=== PATIENT | male | born 1945 | race Caucasian/White ===

== ENCOUNTER 2017-04-11 15:29 | Observation (INO) | payer OTHER ==
[~2017-04-11] VITALS: Ht 177.8 cm; Wt 79.6 kg
[2017-04-11] VITALS (8 sets, daily range): BP systolic 134–188; BP diastolic 77–92; PULSE 54–72; RESP 16–20; TEMP 98.2–98.5; O2SAT 97–100
--- NOTE | 2017-04-11 15:42 | PD ---
Physical Exam Date Seen by Provider: Apr 11, 2017 Time Seen by Provider: 15:37 Narrative 72-year-old down from [place] reports the emergency department with history of intermittent angina and stents, last being 2003. Patient reports increased incidents of what he describes as angina with exertion over the past week. Patient also feels that he may have a muscle strain left upper back which could be giving him similar symptoms. Patient felt he had angina this morning on flat ground which is unusual which did not seem to go away as it normally does. He has nitroglycerin but did not take it, he only took his 2 baby aspirin this morning. Patient is taking a pain of 3-4 out of 10 currently. He is not short of breath. Data Data Last Documented VS Vital Signs Date Time Temp Pulse Resp B/P (MAP) Pulse Ox O2 Delivery O2 Flow Rate FiO2 04/11/17 15:31 98.5 72 20 170/92 (118) 98 Room Air [facility] Medical Record Reviewed: Yes Supervised Visit with ISAIAH: Yes Condition: Stable Antoine Fuentes Apr 11, 2017 15:42
[2017-04-11] MEDS ORDERED: ASPIRIN 81 MG CHEW TAB PO ONE (15:45)
[2017-04-11 16:22] LABS: AUTOMATED NEUTROPHIL # 5.1 TH/MM3 (1.8-7.7); BASOPHIL % 0.4 % (0.0-2.0); EOSINOPHIL % 0.3 % (0.0-4.0); HEMATOCRIT 42.5 % (39.0-51.0); HEMO FLAGS DIFF FINAL; LYMPH % 20.7 % (9.0-44.0); LYMPHOCYTE # 1.5 TH/MM3 (1.0-4.8); MEAN CELL VOLUME 89.4 FL (80.0-100.0); MEAN CORPUSCULAR HEMOGLOBIN 29.9 PG (27.0-34.0); MEAN CORPUSCULAR HGB CONC 33.5 % (32.0-36.0); MONO % 7.5 % (0.0-8.0); NEUT % 71.1 % (16.0-70.0); PLATELET COUNT 167 TH/MM3 (150-450); RED BLOOD COUNT 4.76 MIL/MM3 (4.50-5.90); RED CELL DISTRIBUTION WIDTH 13.1 % (11.6-17.2); WHITE BLOOD COUNT 7.2 TH/MM3 (4.0-11.0)
[2017-04-11 16:35] LABS: APTT (PATIENT) 24.3 SEC (24.3-30.1); INTERNATIONAL NORMALIZED RATIO 0.9 RATIO; PROTHROMBIN TIME - PATIENT 10.4 SEC (9.8-11.6)
[2017-04-11 16:37] LABS: ANION GAP 5 MEQ/L (5-15); BICARBONATE 29.2 MEQ/L (21.0-32.0); BLOOD UREA NITROGEN 14 MG/DL (7-18); CHLORIDE 107 MEQ/L (98-107); GLOMERULAR FILTRATION RATE 73 ML/MIN (>89); MAGNESIUM 2.2 MG/DL (1.5-2.5); POTASSIUM 3.9 MEQ/L (3.5-5.1); SODIUM (NA) 141 MEQ/L (136-145)
[2017-04-11 16:42] LABS: CREATINE KINASE 77 U/L (39-308)
--- NOTE | 2017-04-11 16:58 | RADRPT ---
EXAM DATE/TIME: 04/11/2017 16:17 [facility] COMPARISON: No previous studies available for comparison. INDICATIONS : Midline chest pain. MEDICAL HISTORY : Chronic chest pain with exercise. SURGICAL HISTORY : Angioplasty. ENCOUNTER: Initial ACUITY: 1 week PAIN SCORE: 5/10 LOCATION: Chest, midline. FINDINGS: PA and lateral views of the chest demonstrate the lungs to be symmetrically aerated without evidence of mass, infiltrate or effusion. The cardiomediastinal contours are unremarkable. Osseous structure s are intact. CONCLUSION: No acute disease. Jaswant De Luna MD on April 11, 2017 at 16:56 Board Certified Radiologist. This report was verified electronically.
[2017-04-11] MEDS ORDERED: IOHEXOL 350 MG/ML 50 ML BTL (for Cath Lab) OTHER ONE (18:04)
[2017-04-11] MEDS ORDERED: IOHEXOL 350 MG/ML 100 ML BTL (for Cath Lab) OTHER ONE (18:04)
[2017-04-11] MEDS ORDERED: NITROGLYCERIN 0.4 MG SL 25 TABS/BTL SL PRN ×2 (18:15→18:45)
[2017-04-11] MEDS ORDERED: ACETAMINOPHEN 500 MG CPLT PO PRN ×2 (18:15→18:45)
[2017-04-11] MEDS ORDERED: SODIUM CHLORIDE 0.9% FLUSH 10 ML FLUSH IV FLUSH PRN (18:15)
--- NOTE | 2017-04-11 18:29 | PD ---
HPI Chief Complaint: Chest Pain Time Seen by Provider: 16:43 Travel History International Travel<30 days: No Contact w/Intl Traveler<30days: No Traveled to known affect area: No History of Present Illness HPI 72-year-old male that presents to the ED for evaluation of chest discomfort that he's had for the past week. Per patient he comes and goes. Per patient she regularly gets angina pain whenever he exerts himself. Per patient this is not unusual for him. The patient usually takes nitroglycerin arrest and he goes away. Per patient he is originally from [facility] and he lives in an area which is very flat so he was she doesn't have to exert himself but he recently went to [place] which is more elevated and he started having more symptoms. He noticed that when he came here to [place] since Thursday he has been developing more of the symptoms and it did not seem to go away even with the nitroglycerin completely. Per patient this seems to becoming more frequent with less exertion as before. Per patient even with the nitroglycerin the symptoms do not go completely away but they didn't last longer and eventually to go away. Per patient she's not had a heart cath or stress testing about 10 years. Per patient the last time he had any heart issues was in 2003 were he had a heart catheter and stenting. He does have a history of hypertension, smokes cigars on occasion and has a family history of heart disease as well as a show a heart history with himself having stents and CABG in the past. He does not have a cartilage in the area but plans to stay here and [facility] for the next 2 months. He takes aspirin daily. He states that he takes cholesterol medication as well. Pain per patient gets to be sharp and 7 out of 10. In addition he also noted that sometimes he develops this pain on his chest that becomes more constant whenever he moves his back and neck, but not all the time. PFSH Past Medical History Cardiac Catheterization: Yes Cardiovascular Problems: Yes High Cholesterol: Yes Chest Pain: Yes Hypertension: Yes Past Surgical History Coronary Stent: Yes Social History Alcohol Use: No Tobacco Use: Yes (cigars on occassion (maybe twice a year per patient)) Substance Use: No Allergies-Medications (Allergen,Severity, Reaction): Coded Allergies: No Known Allergies (Unverified , 04/11/17) Review of Systems Except as stated in HPI: all other systems reviewed are Neg Physical Exam Narrative GENERAL: SKIN: Warm and dry. HEAD: Atraumatic. Normocephalic. EYES: Pupils equal and round. No scleral icterus. No injection or drainage. ENT: No nasal bleeding or discharge. Mucous membranes pink and moist. Tongue is midline. No uvula deviation. NECK: Trachea midline. No JVD. CARDIOVASCULAR: Regular rate and rhythm. No murmurs, S3, S4. RESPIRATORY: No accessory muscle use. Clear to auscultation. Breath sounds equal bilaterally. GASTROINTESTINAL: Abdomen soft, non-tender, nondistended. Hepatic and splenic margins not palpable. MUSCULOSKELETAL: Extremities without clubbing, cyanosis, or edema. No obvious deformities. Full range of motion of the upper and lower extremities bilaterally. 2+ pulses bilaterally. NEUROLOGICAL: Awake and alert. No obvious cranial nerve deficits. Motor grossly within normal limits. Five out of 5 muscle strength in the arms and legs. Normal speech. PSYCHIATRIC: Appropriate mood and affect; insight and judgment normal. Data Data Last Documented VS Vital Signs Date Time Temp Pulse Resp B/P (MAP) Pulse Ox O2 Delivery O2 Flow Rate FiO2 04/11/17 15:31 98.5 72 20 170/92 (118) 98 Room Air Orders Orders Electrocardiogram (04/11/17 15:42) Basic Metabolic Panel (Bmp) (04/11/17 15:42) Ckmb (Isoenzyme) Profile (04/11/17 15:42) Complete Blood Count With Diff (04/11/17 15:42) Magnesium (Mg) (04/11/17 15:42) Prothrombin Time / Inr (Pt) (04/11/17 15:42) Act Partial Throm Time (Ptt) (04/11/17 15:42) Troponin I (04/11/17 15:42) Aspirin Chew (Aspirin Chew) (04/11/17 15:45) Chest, Pa & Lat (04/11/17 15:42) Admit Order (Ed Use Only) (04/11/17 18:01) Labs Laboratory Tests Test 04/11/17 15:50 White Blood Count 7.2 TH/MM3 Red Blood Count 4.76 MIL/MM3 Hemoglobin 14.3 GM/DL Hematocrit 42.5 % Mean Corpuscular Volume 89.4 FL Mean Corpuscular Hemoglobin 29.9 PG Mean Corpuscular Hemoglobin Concent 33.5 % Red Cell Distribution Width 13.1 % Platelet Count 167 TH/MM3 Mean Platelet Volume 8.6 FL Neutrophils (%) (Auto) 71.1 % Lymphocytes (%) (Auto) 20.7 % Monocytes (%) (Auto) 7.5 % Eosinophils (%) (Auto) 0.3 % Basophils (%) (Auto) 0.4 % Neutrophils # (Auto) 5.1 TH/MM3 Lymphocytes # (Auto) 1.5 TH/MM3 Monocytes # (Auto) 0.5 TH/MM3 Eosinophils # (Auto) 0.0 TH/MM3 Basophils # (Auto) 0.0 TH/MM3 CBC Comment DIFF FINAL Differential Comment Prothrombin Time 10.4 SEC Prothromb Time International Ratio 0.9 RATIO Activated Partial Thromboplast Time 24.3 SEC Blood Urea Nitrogen 14 MG/DL Creatinine 1.01 MG/DL Random Glucose 110 MG/DL Calcium Level 8.9 MG/DL Magnesium Level 2.2 MG/DL Sodium Level 141 MEQ/L Potassium Level 3.9 MEQ/L Chloride Level 107 MEQ/L Carbon Dioxide Level 29.2 MEQ/L Anion Gap 5 MEQ/L Estimat Glomerular Filtration Rate 73 ML/MIN Total Creatine Kinase 77 U/L Troponin I LESS THAN 0.02 NG/ML MDM Medical Decision Making Medical Screen Exam Complete: Yes Emergency Medical Condition: Yes Medical Record Reviewed: Yes Interpretation(s) CBC & BMP Diagram 04/11/17 15:50 Calcium Level 8.9, Magnesium Level 2.2 troponin and CKMB negative EKG shows sinus rhythm with no sign of acute ischemia or arrythmia read by me and attending. Last Impressions Chest X-Ray 04/11/17 1542 Signed Impressions: Service Date/Time: Thursday, April 11, 2017 16:17 - CONCLUSION: No acute disease. Jaswant De Luna MD Differential Diagnosis Chest pain versus a typical chest pain versus ACS versus muscle strain versus muscle spasm versus angina Narrative Course 72-year-old male that presents to the ED for evaluation of chest pain. Patient was properly examined and was found to have signs and symptoms concerning for chest discomfort. Unclear etiology at this time. Definite concern for ACS as he does have a significant history of this. He does have risk factors including personal history of ACS, smoking, cholesterol and hypertension. Labs and imaging were done and were essentially unremarkable. No sign of acute STEMI or ACS event. Patient at this time is chest pain-free. Some of the pain is reproducible with touch in the back but not on the chest. I do recommend admission for chest pain center. This was discussed with my attending Dr. Ly who agrees with this. Patient will be admitted to the chest pain center. Patient agrees to this. Diagnosis Primary Impression: Chest pain in adult Admitting Information Admitting Physician Requests: Observation Condition: Stable Michael Estrada Apr 11, 2017 18:29
[2017-04-11] MEDS ORDERED: cloNIDine HCL 0.1 MG TAB PO ONE (18:30)
[2017-04-11] MEDS ORDERED: cloNIDine HCL 0.1 MG TAB PO PRN (18:45)
[2017-04-11] MEDS ORDERED: ONDANSETRON HCL 4 MG/2 ML VIAL IV PUSH PRN (18:45)
[2017-04-11] MEDS ORDERED: RAMI2.5C PO (18:51)
[2017-04-11] MEDS ORDERED: CLOP75TA PO (18:51)
[2017-04-11] MEDS ORDERED: METO50TA PO (18:51)
[2017-04-11] MEDS ORDERED: PRAV80TA2 PO (18:53)
[2017-04-11] MEDS ORDERED: ASPI81CH CHEW (18:54)
[2017-04-11] MEDS ORDERED: FOLI400T PO (18:54)
[2017-04-11] MEDS: SODIUM CHLORIDE 0.9% FLUSH 10 ML FLUSH IV FLUSH SCH (21:00)
[2017-04-11 21:09] LABS: CREATINE KINASE 69 U/L (39-308)
[2017-04-11 22:59] LABS: CREATINE KINASE 64 U/L (39-308)
[2017-04-12] VITALS (9 sets, daily range): BP systolic 121–166; BP diastolic 59–81; PULSE 54–60; RESP 18; TEMP 98–98.5; O2SAT 95–100
[2017-04-12] MEDS: ASPIRIN 325 MG TAB PO SCH (08:17)
[2017-04-12] MEDS: SODIUM CHLORIDE 0.9% FLUSH 10 ML FLUSH IV FLUSH SCH ×2 (08:18→21:00)
[2017-04-12] MEDS: PRAVASTATIN SOD 80 MG TAB PO SCH (08:20)
[2017-04-12] MEDS: CLOPIDOGREL 75 MG TAB PO SCH (08:20)
--- NOTE | 2017-04-12 08:26 | HHI.HP ---
HPI Primary Care Physician [place], [place] Chief Complaint Chest pain History of Present Illness 72-year-old male with history of coronary artery disease including 3 angioplasties and one cardiac stent presents to emergency room for further evaluation of chest pain. Reports history of "normal angina" since 2003 consists of exertional substernal chest tightness which quickly subsides after walking 1/4 mile or within a few minutes into his activity. Endorses normal angina is not predictable, stating some times does not develop angina symptoms at all. Rarely requires nitroglycerin SL. Presents to ER, as directed by his aeronautical engineering teacher in [place], due increasing frequency and intensity of anginal symptoms. This past Thursday (04/03/2017) was visiting his [id number] in [place]. Reports while walking the neighborhood there his angina symptoms began as usual. Initially contributed angina to hilly terrain, however chest tightness did not improve until he resting lasting approximately 15 minutes. Second chest pain episode occurred Thursday, while push mowing his grass. Again, angina symptoms more intense and did not resolve until resting. He was uncertain if pain on Thursday was angina in nature or musculoskeletal from a fall 3 weeks prior, therefore not overly concerned. Became concerned after experiencing chest tightness during his daily walks twice later in the week. No associated symptoms of nausea, vomiting, or diaphoresis. Reports slight shortness of breath during chest pain episodes. No radiation of pain. Duration approximately 15 minutes with each episode. Precipitating factors exertion. Relieving factors rest. Chest discomfort similar to prior angioplasty and stent placed in 2003. No recent stress testing. He spoke with a aeronautical engineering teacher covering for his aeronautical engineering teacher yesterday and was instructed to go to ER. Review of Systems General: No fatigue,weakness, fever, chills, recent illness, or change in appetite. Has been his general state of health. His lifestyle. CV: As stated above. No current chest pain or pressure. No palpitations, intermittent leg pain, or dizziness. RESP: No SOB, cough, recent URI, or sputum production. GI: No nausea, vomiting, or bowel changes. : No dysuria, urgency, or frequency. EXT: No lower leg edema, no paraesthesias MS: Recent fall from ladder 3 weeks ago, ladder collapsed. No LOC, injury, or trauma. Since this time slight midline between shoulder blades substernal tenderness when he moves his neck down. No change in ROM NEURO: No change in memory, difficulty with balance, LOC, motor/sensory deficits PSYCH: No anxiety, depression, or relational stress SKIN: No rashes, no concerning lesions Past Family Social History Allergies: Coded Allergies: No Known Allergies (Unverified , 04/11/17) Past Medical History CAD, x1 cardiac stents, 3 angioplasties, HLD, HTN, Dupuytren contracture Past Surgical History Hernia repair (1995) Reported Medications Active Reported Folic Acid 0.4 Mg Tab 400 Mcg PO DAILY Aspirin 81 Mg Chew 81 Mg CHEW DAILY Pravastatin 80 Mg Tab 80 Mg PO DAILY Clopidogrel (Clopidogrel Bisulfate) 75 Mg Tab 75 Mg PO DAILY Metoprolol Tartrate 50 Mg Tab 50 Mg PO DAILY Ramipril 2.5 Mg Cap 2.5 Mg PO DAILY Active Ordered Medications Current Medications Medications (Trade) Dose Ordered Sig/Guido Route Start Time Stop Time Status Last Admin (NS Flush) 2 ml UNSCH PRN IV FLUSH 04/11/17 18:15 (NS Flush) 2 ml BID IV FLUSH 04/11/17 21:00 04/11/17 21:00 (Nitrostat Sl) 0.4 mg Q5M PRN SL 04/11/17 18:15 (Tylenol) 500 mg Q4H PRN PO 04/11/17 18:45 (Zofran Inj) 4 mg Q6H PRN IV PUSH 04/11/17 18:45 (Nitrostat Sl) 0.4 mg Q5M PRN SL 04/11/17 18:45 (Aspirin) 325 mg DAILY PO 04/12/17 09:00 (Catapres) 0.1 mg Q6H PRN PO 04/11/17 18:45 (Plavix) 75 mg DAILY PO 04/12/17 09:00 (Pravachol) 80 mg DAILY PO 04/12/17 09:00 (Altace) 2.5 mg DAILY PO 04/12/17 09:00 Family History Mother CABG Social History Known CAD, HLD, and HTN. No known diabetes. Lifelong smoker. Rare cigar/yearly. Social alcohol use, reports sometimes zero drinks, other times 1-2 alcohol beverages. . Lives in [place] 6 months out of year other times living in [place]. Active. Walks 2-3 miles 3 times a week. Past Cardiac Testing No recent stress testing. Last stress test 10 years ago. December 2016 echocardiogram-reported to be normal. Echocardiogram completed for new heart murmur identified this year, ordered by his primary MD. 05/01/1993 Cardiac catheterization ([place])-angioplasty (reports angioplasty of anterior descending artery). Discomfort prior to procedure described as "sharp, needle pain" progressed within 6 weeks to exertional chest pain. 03/19/2001 Cardiac catheterization ([place])-angioplasty. Cannot recall discomfort or symptoms prior to this catheterization. 11/02/2003 Cardiac catheterization angioplasty and 1 stent (Stent placed behind prior stent during same procedure). Discomfort prior to procedure described as a dull aching, substernal pressure as though "someone was sitting on my chest." Visiting his son in [place] at the time, once returning home to [place] 4 his aeronautical engineering teacher who then proceeded with cardiac catheterization. Stent card picture illustration reviewed. Unable to determine where angioplasty versus stent were placed. Physical Exam Vital Signs Vital Signs Date Time Temp Pulse Resp B/P (MAP) Pulse Ox O2 Delivery O2 Flow Rate FiO2 04/12/17 03:56 55 04/12/17 03:22 98.0 54 18 135/75 (95) 95 04/11/17 23:24 98.4 54 18 134/77 (96) 100 04/11/17 22:06 54 04/11/17 21:06 04/11/17 20:56 97 21 04/11/17 20:55 98.2 57 18 145/79 (101) 100 04/11/17 18:24 100 21 04/11/17 18:05 58 16 187/92 (123) 04/11/17 16:45 68 16 188/90 (122) 04/11/17 15:31 98.5 72 20 170/92 (118) 98 Room Air Physical Exam GENERAL: Alert WN, WD, NAD, pleasant, male who appears younger than stated age. HEAD: NC, AT EYES: Sclera clear ENT: Mucous membranes pink and moist NECK: Supple, no masses, trachea midline CV: RRR, 2/6 systolic murmur, without rub or gallop, no JVD, S1-S2 no S3-S4. RESP: Clear lungs throughout bilateral, no crackles, wheeze, rhonchi, symmetrical chest rise, nonlabored, able to speak in full sentences ABD: Soft, NT, ND, no masses, positive bowel tones EXT: Pulses +24, no dependent edema MS: Dupuytren contracture of left hand, normal tone 4 extremities, full range of motion NEURO: CN II through CN XII grossly intact, motor strength 5/5 PSYCH: A+O 3, pleasant affect, appropriate speech, appropriate mood and affect , insight and judgment SKIN: Normal turgor, normal texture, no lesions, no rashes, brisk cap refill, even hair distribution Laboratory Laboratory Tests Test 04/11/17 15:50 04/11/17 19:55 04/11/17 21:55 White Blood Count 7.2 Red Blood Count 4.76 Hemoglobin 14.3 Hematocrit 42.5 Mean Corpuscular Volume 89.4 Mean Corpuscular Hemoglobin 29.9 Mean Corpuscular Hemoglobin Concent 33.5 Red Cell Distribution Width 13.1 Platelet Count 167 Mean Platelet Volume 8.6 Neutrophils (%) (Auto) 71.1 Lymphocytes (%) (Auto) 20.7 Monocytes (%) (Auto) 7.5 Eosinophils (%) (Auto) 0.3 Basophils (%) (Auto) 0.4 Neutrophils # (Auto) 5.1 Lymphocytes # (Auto) 1.5 Monocytes # (Auto) 0.5 Eosinophils # (Auto) 0.0 Basophils # (Auto) 0.0 CBC Comment DIFF FINAL Differential Comment Prothrombin Time 10.4 Prothromb Time International Ratio 0.9 Activated Partial Thromboplast Time 24.3 Blood Urea Nitrogen 14 Creatinine 1.01 Random Glucose 110 Calcium Level 8.9 Magnesium Level 2.2 Sodium Level 141 Potassium Level 3.9 Chloride Level 107 Carbon Dioxide Level 29.2 Anion Gap 5 Estimat Glomerular Filtration Rate 73 Total Creatine Kinase 77 69 64 Troponin I LESS THAN 0.02 LESS THAN 0.02 LESS THAN 0.02 Result Diagram: 04/11/17 1550 04/11/17 1550 Imaging Last Impressions Chest X-Ray 04/11/17 1542 Signed Impressions: Service Date/Time: Tuesday, April 11, 2017 16:17 - CONCLUSION: No acute disease. Jaswant De Luna MD Course EKG 1st AVB, NSB Caprini VTE Risk Assessment Caprini VTE Risk Assessment: Mod/High Risk (score >= 2) Caprini Risk Assessment Model Point Value = 1 Point Value = 2 Point Value = 3 Point Value = 5 Age 41-60 Minor surgery BMI > 25 kg/m2 Swollen legs Varicose veins or History of unexplained or recurrent spontaneous Oral contraceptives or hormone replacement Sepsis (< 1 month) Serious lung disease, including pneumonia (< 1 month) Abnormal pulmonary function Acute myocardial infarction Congestive heart failure (< 1 month) History of inflammatory bowel disease Medical patient at bed rest Age 61-74 Arthroscopic surgery Major open surgery (> 45 min) Laparoscopic surgery (> 45 min) Malignancy Confined to bed (> 72 hours) Immobilizing plaster cast Central venous access Age >= 75 History of VTE Family history of VTE Factor V Leiden Prothrombin [id number] Lupus anticoagulant Anticardiolipin antibodies Elevated serum homocysteine Heparin-induced thrombocytopenia Other congenital or acquired thrombophilia Stroke (< 1 month) Elective arthroplasty Hip, pelvis, or leg fracture Acute spinal cord injury (< 1 month) Prophylaxis Regimen Total Risk Factor Score Risk Level Prophylaxis Regimen 0-1 Low Early ambulation 2 Moderate Order ONE of the following: *Sequential Compression Device (SCD) *Heparin 5000 units SQ BID 3-4 Higher Order ONE of the following medications: *Heparin 5000 units SQ TID *Enoxaparin/Lovenox 40 mg SQ daily (WT < 150 kg, CrCl > 30 mL/min) *Enoxaparin/Lovenox 30 mg SQ daily (WT < 150 kg, CrCl > 10-29 mL/min) *Enoxaparin/Lovenox 30 mg SQ BID (WT < 150 kg, CrCl > 30 mL/min) AND/OR *Sequential Compression Device (SCD) 5 or more Highest Order ONE of the following medications: *Heparin 5000 units SQ TID (Preferred with Epidurals) *Enoxaparin/Lovenox 40 mg SQ daily (WT < 150 kg, CrCl > 30 mL/min) *Enoxaparin/Lovenox 30 mg SQ daily (WT < 150 kg, CrCl > 10-29 mL/min) *Enoxaparin/Lovenox 30 mg SQ BID (WT < 150 kg, CrCl > 30 mL/min) AND *Sequential Compression Device (SCD) Assessment and Plan Assessment and Plan #1 Chest pain-admitted to chest pain center. Ruled out with 3 sets of EKGs, cardiac enzymes, and monitored overnight. Will be seen an evaluated by Dr. Mark Ferguson. Discussed in length with Dr. Ferguson proceeding with chemical stress test due to concern patient may not reach target heart rate due to anginal symptoms. Discussed in length with patient recommendation of a chemical stress test. Patient agreeable to plan of care. #2 History of CAD-continue Plavix, pravastatin, and ramipril. Hold metoprolol until after stress testing. 14:20 Dr. Ferguson assessed patient and discussed in length with patient and his regarding cardiac stress testing results. Plan is to admit to hospitalist group with a aeronautical engineering teacher consult. Nitro paste 1 inch Q6H. Nancie Rodríguez Apr 12, 2017 08:26
[2017-04-12] MEDS: RAMIPRIL 2.5 MG CAP PO SCH (09:21)
--- NOTE | 2017-04-12 11:39 | EKG ---
Date Performed: 04/11/2017 Time Performed: 19:54:50 PTAGE: 72 years EKG: SINUS BRADYCARDIA WITH FIRST DEGREE AV BLOCK ABNORMAL ECG PREVIOUS TRACING : 04/11/2017 15.46 Since previous tracing, no significant change noted DOCTOR: Mark Ferguson Interpretating Date/Time 04/12/2017 11:38:26
--- NOTE | 2017-04-12 11:41 | EKG ---
Date Performed: 04/11/2017 Time Performed: 15:46:48 PTAGE: 72 years EKG: Sinus rhythm normal ECG NO PREVIOUS TRACING DOCTOR: Mark Ferguson Interpretating Date/Time 04/12/2017 11:39:38
--- NOTE | 2017-04-12 11:41 | EKG ---
Date Performed: 04/11/2017 Time Performed: 21:47:55 PTAGE: 72 years EKG: SINUS BRADYCARDIA WITH FIRST DEGREE AV BLOCK ABNORMAL ECG PREVIOUS TRACING : 04/11/2017 19.54 Since previous tracing, no significant change noted DOCTOR: Mark Ferguson Interpretating Date/Time 04/12/2017 11:41:16
[2017-04-12] MEDS ORDERED: REGADENOSON INJ 0.4 MG/5 ML SYR ONE (12:08)
--- NOTE | 2017-04-12 13:36 | RADRPT ---
EXAM DATE/TIME: 04/12/2017 11:34 [facility] COMPARISON: No previous studies available for comparison. INDICATIONS : Chest pain. Angina. DOSE: 27.2 mCi Tc99m Myoview at stress. 8.5 mCi Tc99m Myoview at rest. 0.4 mg Lexiscan STRESS SYMPTOMS: Dyspnea and weird feeling. EJECTION FRACTION: 65% MEDICAL HISTORY : Hypertension. Cardiovascular disease Smoker. SURGICAL HISTORY : Angioplasty. Umbilical hernia repair. ENCOUNTER: Initial ACUITY: 2 days PAIN SCALE: 0/10 LOCATION: Substernal chest TECHNIQUE: The patient underwent pharmacologic stress with infusion of prescribed dose. Continuous ECG tracing was monitored during stress. Gated SPECT imaging was performed after stress and conventional SPECT i maging was performed at rest. The examination was performed on a SPECT/CT scanner, both attenuation and non-corrected datasets were reviewed. FINDINGS: DISTRIBUTION: The maximum perfused segment at stress is in the septal wall. PERFUSION STUDY: There is a moderate size reversible defect involving the anterior wall which is moderate in severity. . GATED STUDY: There is intact wall motion and thickening without hypokinetic or dyskinetic segments. CONCLUSION: 1. Moderate size reversible defect involving the anterior wall of concern for ischemia in the left an terior descending artery distribution. 2. Normal wall motion and calculated ejection fraction. RISK CATEGORY: Intermediate (1-3% Annual Mortality Rate) Jaswant De Luna MD on April 12, 2017 at 13:31 Board Certified Radiologist. This report was verified electronically.
[2017-04-12] MEDS: NITROGLYCERIN 2% OINT 1 GM PACKET TOPICAL SCH ×2 (14:50→20:38)
[2017-04-12] MEDS: METOPROLOL TARTRATE 50 MG TAB PO SCH (14:50)
--- NOTE | 2017-04-12 16:11 | MB ---
cc: ALEKS GRANADOS MD DATE OF CONSULTATION: 04/12/2017. REASON FOR CONSULTATION: Unstable angina. HISTORY OF PRESENT ILLNESS: The patient is a very pleasant 72-year-old gentleman with a known history of coronary artery disease status post stents to the left anterior descending, circumflex and right coronary artery last in about 2003. It sounds like the patient has had some degree of stable angina over the last number of years but over the last several weeks his symptoms have become more severe requiring less and less exertion to bring on the chest pain and also some of it lasting longer. He did take some nitroglycerin with resolution of his symptoms. Due to the acceleration of his symptoms, he came to the emergency department, ruled out for myocardial infarction but then had a nuclear stress test which showed moderate anterior ischemia. He is currently asymptomatic and denying any residual chest discomfort, shortness of breath, lightheadedness, dizziness. PAST MEDICAL HISTORY: 1. Coronary artery disease as above. 2. Hypertension. 3. Hyperlipidemia. CURRENT MEDICATIONS: 1. Nitro paste milligrams daily. 2. Aspirin 325 milligrams daily. 3. Plavix 75 milligrams daily. 4. Pravachol 80 milligrams daily. 5. Altace 2.5 milligrams daily. ALLERGIES: NO KNOWN DRUG ALLERGIES. PHYSICAL EXAMINATION: VITAL SIGNS: Afebrile, pulse 58, respiratory rate 18, blood pressure 145/77, satting 100 on room air. GENERAL: A pleasant well-appearing gentleman in no distress. NECK: No jugular venous distention. LUNGS: Clear to auscultation bilaterally. CARDIOVASCULAR: Regular rate and rhythm. No murmurs appreciated. ABDOMEN: Benign. EXTREMITIES: No edema. LABORATORY DATA: Cardiac enzymes negative x3. Sodium 141, potassium 3.9, chloride 107, bicarb 29.2, BUN 14, creatinine 1.01, glucose 110. White count 7.2, hematocrit 42.5, platelets 167,000. EKGS: EKG shows sinus rhythm at 53 with no acute S-T or T-wave changes. IMPRESSION: 1. Unstable angina with abnormal nuclear stress test: The patient has classic symptoms of unstable angina and a nuclear stress test showed moderate anterior ischemia in the territory of his first stent to his left anterior descending. He is asymptomatic now. I will arrange for a cardiac catheterization by my colleague, Dr. Jackson, in the morning. Otherwise, medical therapy will be continued until then. I will add Imdur to his regimen as well. Further recommendations will be based on the clinical course and his cardiac catheterization. Thank you again for the opportunity to participate in this patient's care. MD TYSHAWN Watt/SANDRO /3:36 PM /4:04 PM
--- NOTE | 2017-04-12 17:10 | HHI.PR ---
Subjective Remarks resting comfortably with no distress. has some neck pain. no other complaints. Objective Vitals Vital Signs Date Time Temp Pulse Resp B/P (MAP) Pulse Ox O2 Delivery O2 Flow Rate FiO2 04/12/17 16:49 98.5 56 18 150/74 (99) 96 04/12/17 10:09 145/77 (99) 04/12/17 09:33 58 04/12/17 09:18 98.5 57 18 166/81 (109) 100 04/12/17 03:56 55 04/12/17 03:22 98.0 54 18 135/75 (95) 95 04/11/17 23:24 98.4 54 18 134/77 (96) 100 04/11/17 22:06 54 04/11/17 21:06 04/11/17 20:56 97 21 04/11/17 20:55 98.2 57 18 145/79 (101) 100 04/11/17 18:24 100 21 04/11/17 18:05 58 16 187/92 (123) Result Diagram: 04/11/17 1550 04/11/17 1550 Imaging Last Impressions Myocardial Perfusion Scan Nuc Med 04/12/17 0000 Signed Impressions: Service Date/Time: Wednesday, April 12, 2017 11:34 - CONCLUSION: 1. Moderate size reversible defect involving the anterior wall of concern for ischemia in the left anterior descending artery distribution. 2. Normal wall motion and calculated ejection fraction. RISK CATEGORY: Intermediate (1-3%% Annual Mortality Rate) Jaswant De Luna MD Chest X-Ray 04/11/17 1542 Signed Impressions: Service Date/Time: Tuesday, April 11, 2017 16:17 - CONCLUSION: No acute disease. Jaswant De Luna MD Objective Remarks GENERAL: This is a well-nourished, well-developed patient, in no apparent distress. CARDIOVASCULAR: Regular rate and regular rhythm without murmurs, gallops, or rubs. RESPIRATORY: Clear to auscultation. Breath sounds equal bilaterally. No wheezes , rales, or rhonchi. GASTROINTESTINAL: Abdomen soft, non-tender, nondistended. Normal, active bowel sounds MUSCULOSKELETAL: Extremities without clubbing, cyanosis, or edema. NEURO: Alert & Oriented x4 to person, place, time, situation. Moves all ext x4 Medications and IVs Current Medications Aspirin (Aspirin Chew) 162 mg ONCE ONCE PO Last administered on 04/11/17 17: 12; Start 04/11/17 at 15:45; Stop 04/11/17 at 15:46; Status DC Sodium Chloride (NS Flush) 2 ml UNSCH PRN IV FLUSH FLUSH AFTER USING IV ACCESS ; Start 04/11/17 at 18:15 Sodium Chloride (NS Flush) 2 ml BID IV FLUSH Last administered on 04/12/17 08: 18; Start 04/11/17 at 21:00 Acetaminophen (Tylenol) 500 mg Q4H PRN PO HEADACHE; Start 04/11/17 at 18:15; Status Cancel Nitroglycerin (Nitrostat Sl) 0.4 mg Q5M PRN SL CHEST PAIN; Start 04/11/17 at 18 :15 Clonidine (Catapres) 0.1 mg ONCE ONCE PO Last administered on 04/11/17 18:38 ; Start 04/11/17 at 18:30; Stop 04/11/17 at 18:31; Status DC Acetaminophen (Tylenol) 500 mg Q4H PRN PO HEADACHE; Start 04/11/17 at 18:45 Ondansetron HCl (Zofran Inj) 4 mg Q6H PRN IV PUSH NAUSEA; Start 04/11/17 at 18: 45 Nitroglycerin (Nitrostat Sl) 0.4 mg Q5M PRN SL CHEST PAIN; Start 04/11/17 at 18 :45 Aspirin (Aspirin) 325 mg DAILY PO Last administered on 04/12/17 08:17; Start 04/12/17 at 09:00 Clonidine (Catapres) 0.1 mg Q6H PRN PO SBP>180, DBP>110; Start 04/11/17 at 18: 45 Clopidogrel Bisulfate (Plavix) 75 mg DAILY PO Last administered on 04/12/17 08 :20; Start 04/12/17 at 09:00 Pravastatin Sodium (Pravachol) 80 mg DAILY PO ; Start 04/12/17 at 09:00 Ramipril (Altace) 2.5 mg DAILY PO Last administered on 04/12/17 09:21; Start 04/12/17 at 09:00 Regadenoson (Lexiscan Inj) 0.4 mg STK-MED ONCE .ROUTE Last administered on 04/12 12:08; Start 04/12/17 at 12:08; Stop 04/12/17 at 12:09; Status DC Nitroglycerin (Nitroglycerin 2% Oint) 1 inch Q6H TOPICAL Last administered on 14:50; Start 04/12/17 at 15:00 Metoprolol Tartrate (Lopressor) 50 mg DAILY PO Last administered on 04/12/17 14:50; Start 04/12/17 at 14:30 Isosorbide Mononitrate (Imdur) 30 mg DAILY@07 PO ; Start 04/13/17 at 07:00 A/P Assessment and Plan A/P - unstable angina with ischemia of the anterior wall continue aspirin, plavix, BB, ramipril and statin imdur was added- cardiology consult appreciated and plan for heart cath tomorrow. Cece Shearer MD Apr 12, 2017 17:10
[2017-04-13] VITALS (15 sets, daily range): BP systolic 113–169; BP diastolic 52–82; PULSE 53–97; RESP 18; TEMP 97.9–98.9; O2SAT 91–99
[2017-04-13] MEDS: NITROGLYCERIN 2% OINT 1 GM PACKET TOPICAL SCH ×4 (04:26→20:42)
[2017-04-13] MEDS: ISOSORBIDE MONONITRATE 30 MG TAB PO SCH (07:00)
--- NOTE | 2017-04-13 08:32 | HHI.PR ---
Subjective Remarks resting comfortably with no distress. denies chest pain or sob. no new complaints. awaiting cardiac cath. Objective Vitals Vital Signs Date Time Temp Pulse Resp B/P (MAP) Pulse Ox O2 Delivery O2 Flow Rate FiO2 04/13/17 07:57 21 04/13/17 07:18 97.9 97 18 169/82 (111) 91 04/13/17 06:53 98.7 64 18 117/68 (84) 94 04/13/17 04:04 53 04/13/17 00:48 98.7 54 18 122/67 (85) 97 04/13/17 00:00 53 04/12/17 20:13 98.3 60 18 121/59 (79) 95 04/12/17 20:05 59 04/12/17 18:10 58 04/12/17 16:49 98.5 56 18 150/74 (99) 96 04/12/17 10:09 145/77 (99) 04/12/17 09:33 58 04/12/17 09:18 98.5 57 18 166/81 (109) 100 I/O 04/12/17 04/12/17 04/12/17 04/13/17 04/13/17 04/13/17 07:00 15:00 23:00 07:00 15:00 23:00 Intake Total 240 ml 0 ml Balance 240 ml 0 ml Intake Oral 240 ml 0 ml # Voids 1 1 # Bowel Movements 1 Result Diagram: 04/11/17 1550 04/11/17 1550 Imaging Last Impressions Myocardial Perfusion Scan Nuc Med 04/12/17 0000 Signed Impressions: Service Date/Time: Wednesday, April 12, 2017 11:34 - CONCLUSION: 1. Moderate size reversible defect involving the anterior wall of concern for ischemia in the left anterior descending artery distribution. 2. Normal wall motion and calculated ejection fraction. RISK CATEGORY: Intermediate (1-3%% Annual Mortality Rate) Jaswant De Luna MD Chest X-Ray 04/11/17 1542 Signed Impressions: Service Date/Time: Tuesday, April 11, 2017 16:17 - CONCLUSION: No acute disease. Jaswant De Luna MD Objective Remarks GENERAL: This is a well-nourished, well-developed patient, in no apparent distress. CARDIOVASCULAR: Regular rate and regular rhythm without murmurs, gallops, or rubs. RESPIRATORY: Clear to auscultation. Breath sounds equal bilaterally. No wheezes , rales, or rhonchi. GASTROINTESTINAL: Abdomen soft, non-tender, nondistended. Normal, active bowel sounds MUSCULOSKELETAL: Extremities without clubbing, cyanosis, or edema. NEURO: Alert & Oriented x4 to person, place, time, situation. Moves all ext x4 Medications and IVs Current Medications Aspirin (Aspirin Chew) 162 mg ONCE ONCE PO Last administered on 04/11/17 17: 12; Start 04/11/17 at 15:45; Stop 04/11/17 at 15:46; Status DC Sodium Chloride (NS Flush) 2 ml UNSCH PRN IV FLUSH FLUSH AFTER USING IV ACCESS ; Start 04/11/17 at 18:15 Sodium Chloride (NS Flush) 2 ml BID IV FLUSH Last administered on 04/12/17 21: 00; Start 04/11/17 at 21:00 Acetaminophen (Tylenol) 500 mg Q4H PRN PO HEADACHE; Start 04/11/17 at 18:15; Status Cancel Nitroglycerin (Nitrostat Sl) 0.4 mg Q5M PRN SL CHEST PAIN; Start 04/11/17 at 18 :15 Clonidine (Catapres) 0.1 mg ONCE ONCE PO Last administered on 04/11/17 18:38 ; Start 04/11/17 at 18:30; Stop 04/11/17 at 18:31; Status DC Acetaminophen (Tylenol) 500 mg Q4H PRN PO HEADACHE Last administered on 04:38; Start 04/11/17 at 18:45 Ondansetron HCl (Zofran Inj) 4 mg Q6H PRN IV PUSH NAUSEA; Start 04/11/17 at 18: 45 Nitroglycerin (Nitrostat Sl) 0.4 mg Q5M PRN SL CHEST PAIN; Start 04/11/17 at 18 :45 Aspirin (Aspirin) 325 mg DAILY PO Last administered on 04/12/17 08:17; Start 04/12/17 at 09:00 Clonidine (Catapres) 0.1 mg Q6H PRN PO SBP>180, DBP>110; Start 04/11/17 at 18: 45 Clopidogrel Bisulfate (Plavix) 75 mg DAILY PO Last administered on 04/12/17 08 :20; Start 04/12/17 at 09:00 Pravastatin Sodium (Pravachol) 80 mg DAILY PO ; Start 04/12/17 at 09:00 Ramipril (Altace) 2.5 mg DAILY PO Last administered on 04/12/17 09:21; Start 04/12/17 at 09:00 Regadenoson (Lexiscan Inj) 0.4 mg STK-MED ONCE .ROUTE Last administered on 04/12 12:08; Start 04/12/17 at 12:08; Stop 04/12/17 at 12:09; Status DC Nitroglycerin (Nitroglycerin 2% Oint) 1 inch Q6H TOPICAL Last administered on 04:26; Start 04/12/17 at 15:00 Metoprolol Tartrate (Lopressor) 50 mg DAILY PO Last administered on 04/12/17 14:50; Start 04/12/17 at 14:30 Isosorbide Mononitrate (Imdur) 30 mg DAILY@07 PO Last administered on 07:00; Start 04/13/17 at 07:00 A/P Assessment and Plan A/P - unstable angina with ischemia of the anterior wall continue aspirin, plavix, BB, ramipril and statin imdur was added- cardiology consult appreciated and plan for heart cath today. Discharge Planning pending cardiac cath and cardiology recommendations. Cece Shearer MD Apr 13, 2017 08:32
[2017-04-13] MEDS: SODIUM CHLORIDE 0.9% FLUSH 10 ML FLUSH IV FLUSH SCH ×2 (09:20→20:42)
[2017-04-13] MEDS: PRAVASTATIN SOD 80 MG TAB PO SCH (09:20)
[2017-04-13] MEDS: METOPROLOL TARTRATE 50 MG TAB PO SCH (09:21)
[2017-04-13] MEDS: ASPIRIN 325 MG TAB PO SCH (09:21)
[2017-04-13] MEDS: RAMIPRIL 2.5 MG CAP PO SCH (09:21)
[2017-04-13] MEDS: CLOPIDOGREL 75 MG TAB PO SCH (09:21)
--- NOTE | 2017-04-13 10:14 | PD.CARD.PN ---
Subjective Subjective Remarks Pt feeling well, no further chest pain. Objective Medications Administered Medications Medications (Trade) Dose Ordered Sig/Guido Route PRN Reason Start Time Stop Time Status Last Admin Dose Admin Sodium Chloride (NS Flush) 2 ml BID IV FLUSH 04/11/17 21:00 04/13/17 09:20 Acetaminophen (Tylenol) 500 mg Q4H PRN PO HEADACHE 04/11/17 18:45 04/13/17 04:38 Aspirin (Aspirin) 325 mg DAILY PO 04/12/17 09:00 04/13/17 09:21 Clopidogrel Bisulfate (Plavix) 75 mg DAILY PO 04/12/17 09:00 04/13/17 09:21 Pravastatin Sodium (Pravachol) 80 mg DAILY PO 04/12/17 09:00 04/13/17 09:20 Ramipril (Altace) 2.5 mg DAILY PO 04/12/17 09:00 04/13/17 09:21 Nitroglycerin (Nitroglycerin 2% Oint) 1 inch Q6H TOPICAL 04/12/17 15:00 04/13/17 09:21 Metoprolol Tartrate (Lopressor) 50 mg DAILY PO 04/12/17 14:30 04/13/17 09:21 Isosorbide Mononitrate (Imdur) 30 mg DAILY@07 PO 04/13/17 07:00 04/13/17 07:00 Vital Signs / I&O Vital Signs Date Time Temp Pulse Resp B/P (MAP) Pulse Ox O2 Delivery O2 Flow Rate FiO2 04/13/17 07:57 21 04/13/17 07:18 04/13/17 06:53 98.7 64 18 117/68 (84) 94 04/13/17 04:04 53 04/13/17 00:48 98.7 54 18 122/67 (85) 97 04/13/17 00:00 53 04/12/17 20:13 98.3 60 18 121/59 (79) 95 04/12/17 20:05 59 04/12/17 18:10 58 04/12/17 16:49 98.5 56 18 150/74 (99) 96 I/O 04/12/17 04/12/17 04/12/17 04/13/17 04/13/17 04/13/17 07:00 15:00 23:00 07:00 15:00 23:00 Intake Total 240 ml 0 ml Balance 240 ml 0 ml Intake Oral 240 ml 0 ml # Voids 1 1 # Bowel Movements 1 Physical Exam GENERAL: This is a well-nourished, well-developed patient, in no apparent distress. CARDIOVASCULAR: Regular rate and rhythm without murmurs, gallops, or rubs. RESPIRATORY: Clear to auscultation. Breath sounds equal bilaterally. No wheezes , rales, or rhonchi. GASTROINTESTINAL: Abdomen soft, non-tender, nondistended. Normal active bowel sounds MUSCULOSKELETAL: Extremities without clubbing, cyanosis, or edema. NEURO: Alert & Oriented x4 to person, place, time, situation. Moves all ext x4 Imaging Last Impressions Myocardial Perfusion Scan Nuc Med 04/12/17 0000 Signed Impressions: Service Date/Time: Wednesday, April 12, 2017 11:34 - CONCLUSION: 1. Moderate size reversible defect involving the anterior wall of concern for ischemia in the left anterior descending artery distribution. 2. Normal wall motion and calculated ejection fraction. RISK CATEGORY: Intermediate (1-3%% Annual Mortality Rate) Jaswant De Luna MD Chest X-Ray 04/11/17 1542 Signed Impressions: Service Date/Time: Tuesday, April 11, 2017 16:17 - CONCLUSION: No acute disease. Jaswant De Luna MD Assessment and Plan Problem List: (1) Unstable angina ICD Codes: I20.0 - Unstable angina Plan: Improved on current meds; for cath today. (2) CAD (coronary artery disease) ICD Codes: I25.10 - Atherosclerotic heart disease of [place] coronary artery without angina pectoris Plan: 3 prior stents, for PCI today. (3) Abnormal nuclear cardiac imaging test ICD Codes: R93.1 - Abnormal findings on diagnostic imaging of heart and coronary circulation Plan: Anterior ischemia (in territory of his prior LAD stent); for Cath today. Problem Qualifiers (1) CAD (coronary artery disease): Ruddy Bruner MD Apr 13, 2017 10:13
[2017-04-13] MEDS ORDERED: MIDAZOLAM HCL 2 MG/2 ML VIAL ONE (12:21)
[2017-04-13] MEDS ORDERED: SODIUM CHLORID 0.9% 500 ML INJ 500 ML ONE ×2 (12:21→12:48)
[2017-04-13] MEDS ORDERED: HEPARIN-NS/PF INJ 1,000 ML ONE (12:21)
[2017-04-13] MEDS ORDERED: VERAPAMIL HCL 5 MG/2 ML VIAL ONE (12:21)
[2017-04-13] MEDS ORDERED: NITROGLYCERIN INJ 5 ML ONE (12:22)
[2017-04-13] MEDS ORDERED: HEPARIN SODIUM - IV 10,000 UNITS/10 ML VIAL ONE ×2 (12:22→15:10)
[2017-04-13] MEDS ORDERED: HEPARIN-NS/PF INJ 500 ML ONE (12:48)
[2017-04-13] MEDS ORDERED: TICAGRELOR 90 MG TAB PO ONE (15:16)
[2017-04-13] MEDS ORDERED: SODIUM CHLOR 0.9% 1000 ML INJ 1,000 ML IV SCH (15:46)
[2017-04-13] MEDS ORDERED: oxyCODONE/ACETAMINOPHEN 5 MG/325 MG TAB PO PRN (16:00)
[2017-04-13] MEDS ORDERED: MISC INFORMATION XX ONE (16:00)
[2017-04-13] MEDS ORDERED: MORPHINE SULFATE 4 MG/ML INJ IV PUSH PRN (16:00)
[2017-04-13] MEDS ORDERED: oxyCODONE/ACETAMINOPHEN 10 MG/325 MG TAB PO PRN (16:00)
[2017-04-13] MEDS ORDERED: BACITRACIN OINT 0.9 GM PKT ONE (22:41)
[2017-04-14] VITALS (15 sets, daily range): BP systolic 114–210; BP diastolic 63–113; PULSE 54–86; RESP 14–18; TEMP 97.3–98.7; O2SAT 95–99
[2017-04-14] MEDS: NITROGLYCERIN 2% OINT 1 GM PACKET TOPICAL SCH ×2 (02:37→09:00)
[2017-04-14] MEDS: ISOSORBIDE MONONITRATE 30 MG TAB PO SCH (06:05)
[2017-04-14 06:27] LABS: AUTOMATED NEUTROPHIL # 5.8 TH/MM3 (1.8-7.7); BASOPHIL % 0.2 % (0.0-2.0); EOSINOPHIL # 0.1 TH/MM3 (0-0.4); EOSINOPHIL % 0.8 % (0.0-4.0); HEMATOCRIT 35.3 % (39.0-51.0); HEMO FLAGS DIFF FINAL; LYMPH % 18.4 % (9.0-44.0); LYMPHOCYTE # 1.5 TH/MM3 (1.0-4.8); MEAN CORPUSCULAR HEMOGLOBIN 30.3 PG (27.0-34.0); MEAN CORPUSCULAR HGB CONC 34.8 % (32.0-36.0); MONO % 9.2 % (0.0-8.0); NEUT % 71.4 % (16.0-70.0); PLATELET COUNT 139 TH/MM3 (150-450); RED BLOOD COUNT 4.06 MIL/MM3 (4.50-5.90); RED CELL DISTRIBUTION WIDTH 12.9 % (11.6-17.2); WHITE BLOOD COUNT 8.2 TH/MM3 (4.0-11.0)
[2017-04-14 07:00] LABS: POTASSIUM 3.7 MEQ/L (3.5-5.1)
--- NOTE | 2017-04-14 07:00 | MA ---
cc: FELICE GALDAMEZ DO DATE 04/13/2017 PROCEDURE Left heart catheterization, coronary angiogram, bare metal stent x2 (proximal 2 x 18, distal 2 x 23 overlapped) to the mid-LAD, IFR of LAD, moderate sedation 135 minutes. PREPROCEDURE DIAGNOSIS Unstable angina on multiple antianginal medications, coronary artery disease, abnormal stress test. POSTPROCEDURE DIAGNOSIS Coronary artery disease status post bare metal stent x2 (proximal 2 x 18), distal 2 x 23 overlapped) to the mid-LAD. MEDICATIONS 1. Verapamil 2.5 mg. 2. Nitro 200 mcg. 3. Heparin 11,700 units 4. Versed 1/2 mg. 5. Fentanyl 50 mcg 6. Brilinta 180 mg. CONTRAST 270 cc. FLUOROSCOPY 33.4 minutes ANESTHESIA Moderate sedation 135 minutes ESTIMATED BLOOD LOSS 30 CC PROCEDURAL SUMMARY aJswant Curry is a pleasant 72-year-old male who presented to [facility] due to chest pain with activity. For some time, he has had chest pain with minimal activity, but is able to get through it, but this has gotten much worse recently. During his workup, he underwent stress testing which showed anterior ischemia on a nuclear stress test. Because of this, he was recommended cardiac catheterization. The risks, benefits and alternatives were explained to him and he consented as such. He was brought to lab and prepped in the usual sterile fashion. The right radial artery was accessed using a modified Seldinger technique and placement of a 5/6 slender sheath. This was easily aspirated and flushed. A 3DRC catheter was advanced over a J-wire to the ascending aorta and across the aortic valve for measurement of left ventricular pressure. This was pulled back across the aortic valve showing no significant gradient of aortic stenosis. A 3DRC was used for nonselective shot of the right coronary artery. I was unable to engage the ostium of the RCA so this was exchanged out for a JL-3.5 which was used for selective angiography of the left coronary artery. This was exchanged out for a JR-5 which was used for selective angiography of the right coronary artery. Please see notes below about intervention. Postprocedure, a radial band was placed over the arteriotomy site for hemostasis. The patient left the chemical laboratory technician cardiovascularly stable. FINDINGS Left main, normal sized vessel with 10% disease. Adequate reflux. It bifurcates into an LAD and circumflex. LAD, small to moderate sized vessel proximally. There is mild luminal irregularities up to 20%. The midportion of the LAD is diffusely diseased at the bifurcation of the first diagonal with tandem 70% lesions. In the distal portion of the LAD, there is an 80% lesion, but this is an overall small vessel of 1-1.5 mm. LAD gives off two diagonals with the first diagonal being small and having a 99% lesion as well as a 70% lesion and a second diagonal which is extremely small. Left circumflex is a normal size vessel, two previous stents placed in the midportion of it appear patent with mild in-stent restenosis. It supplies two obtuse marginal arteries. RCA is a moderate size vessel with mild luminal irregularities throughout the proximal portion. In the midportion, there is a 50% lesion. LVEDP three. INTERVENTION Overall, Mr. Curry has multiple lesions in the LAD and diagonal region. The diagonal is overall a small vessel and the ischemia on the stress test was in the anterior without any in the anterolateral position and so I felt that this most likely should be treated medically. The distal LAD is overall a small vessel and would only be able to be angioplastied. I felt that the midportion of the LAD from the first diagonal on could be intervened on, although overall, this is still a small vessel. To make sure that the ischemia was due to these proximal lesions, a [place] IFR wire was advanced into the midportion of the LAD distal to the tandem lesions with an IFR reading of 0.80 showing significant stenosis. A BMW wire was advanced into the distal LAD. The [place] wire was removed. A [place] wire was advanced into the diagonal for protection. A compliant balloon (2 x 12) was then used to predilate the tandem lesions. The distal lesion of the tandem lesions had a mild dissection after balloon angioplasty. Distally, the normal vessel is a 2.0 vessel at most, so I felt that my only option was a mini-link bare metal stent. A mini-link bare metal stent (2 x 23) was placed distally and inflated. A mini-link bare metal stent (2 x 18) was then placed proximal to the previous stent with overlap and inflated. Stent balloon was then moved into the midportion and inflated at high pressure overlapping the stents. The [place] wire was pulled back from the diagonal and rewired through the stent into the diagonal. The noncompliant balloon (2 x 15) was then used multiple times at high pressure to post dilate the stents. Both wires were pulled back and final angiogram shows well opposed stents with no perforations or dissection and NEHA-III flow throughout the diagonal and LAD. The guide catheter was removed over a J-wire. IMPRESSION 1. Unstable angina. 2. Significant coronary artery disease with overall small vessel disease status post bare metal stent x2 (proximal 2 x 18, distal 2 x 23 overlapped) to the mid-LAD with residual 99% stenosis in an overall small diagonal as well as distal LAD 90% stenosis in an overall small vessel. RECOMMENDATIONS 1. Mr. Curry presented with unstable angina underwent stenting as above. 2. He will be placed on aspirin and Brilinta therapy. I asked that he get his free 30 days of Brilinta and after this check with his pharmacist on how much refills will cause. If refills will be too expensive, he will call my office for changing over to Plavix. 3. He will continue on statin, YOLANDA inhibitor, beta-darwin and Imdur therapy. 4. He will be watched overnight and if stable discharge in the morning. 5. I have asked that he continued to do activities as before and see how his chest pain is. My only concern is that his diagonal and distal LAD are overall very small vessels and would only be able to be angioplastied without stenting and the areas covered are a relatively small amount of myocardium. He will call and let me know if there are any changes in his symptoms. 6. He will plan on following up with his crate opener in [place] upon arrival back in [place]. Thank you for allowing me to see Jaswant Curry. If there are any questions, please do not hesitate to call. Felice Galdamez DO VGP/DJL /10:31 PM /6:42 AM MTDLeighton
--- NOTE | 2017-04-14 07:30 | MB ---
cc: SARANYA GALDAMEZ DO DATE OF CONSULTATION April 13, 2017 REASON FOR CONSULTATION Interventional Cardiology consultation due to unstable angina with abnormal stress test. HISTORY OF PRESENT ILLNESS Jaswant Curry is a pleasant 72-year-old male who presented to [facility] on April 11, 2017, due to chest pain. He states that he gets his normal angina since 2003 which is exertional substernal chest tightness which quickly subsides after walking around 1/4-mile or within a few minutes of starting activity. In general he gets these episodes sporadically while exercising and they are somewhat unpredictable. He does avoid trying to use nitroglycerin but has used it sparingly over the years. He has a house in [place] and they were down visiting and he has noticed increased frequency and intensity of his anginal symptoms. He called his zoo keeper and his zoo keeper recommended he come into the emergency room. He notes that recently he was walking at his [id number] place in [place] and started getting the angina which lasted approximately 15 minutes after resting. Upon arrival troponins were negative and he underwent stress testing. During this he was found to have anterior ischemia. I have been asked to see him for consideration of cardiac catheterization. PAST MEDICAL HISTORY 1. Coronary artery disease. 2. Hyperlipidemia. 3. Hypertension. 4. Dupuytren's contractures. PAST SURGICAL HISTORY 1. Cardiac catheterization (May 01, 1993) with angioplasty of the LAD. 2. Cardiac catheterization (March 19, 2001), angioplasty believed to be of the RCA. 3. Cardiac catheterization (November 02, 2003) two stents placed in the obtuse marginal has he was told once stent slipped which sounds like she had a geographic miss. 4. Hernia repair (1995). ALLERGIES No known drug allergies. MEDICATIONS 1. Plavix 75 mg daily. 2. Pravastatin 80 mg daily. 3. Metoprolol tartrate 50 mg daily. 4. Ramipril 2.5 mg daily. 5. Aspirin 81 mg daily. 6. Folic acid 400 mcg daily. FAMILY HISTORY Denies premature coronary artery disease or sudden cardiac within the family. SOCIAL HISTORY The patient rarely smokes a cigar, around once a year. He drinks alcohol socially. He lives 6 months out of the year here in [place]. He is active, walking two to three miles three times a week. REVIEW OF SYSTEMS 14-systems were reviewed including osteopathic pertinent positives and negatives above, otherwise negative. PHYSICAL EXAMINATION VITAL SIGNS: Temperature 98.7, heart rate 59, blood pressure 113/68, respirations 18, pulse ox 98% on room air. IN GENERAL: The patient appears well, in no acute distress, alert awake and oriented x 3. Extraocular muscles intact. Mucous membranes moist. NECK: Supple. No JVD at 45 degrees. No carotid bruits heard bilaterally. Carotid upstroke is brisk in nature. HEART: Regular rate and rhythm. Positive first and second heart sounds with no noted murmurs, gallops or rubs. LUNGS: Clear to auscultation bilaterally. No wheezes, rales or rhonchi. ABDOMEN: Soft, not tender, not distended. EXTREMITIES: No clubbing, cyanosis or edema. Femoral and distal pulses intact bilaterally. NEUROLOGICALLY: No focal deficits. SKIN: Warm, dry and intact. OSTEOPATHICALLY: No kyphoscoliosis, lordosis or paraspinal tender points. LABORATORY FINDINGS Hemoglobin 14.3, hematocrit 42.5, platelets 167. Potassium 3.9, BUN 14, creatinine 1.01. Troponin negative x3. PHARMACOLOGIC NUCLEAR STRESS TEST (April 12, 2017) Moderate-sized reversible defect involving the anterior wall. Concern for ischemia of the LAD artery distribution, normal wall motion, intermediate risk. ELECTROCARDIOGRAM (April 11, 2017 at 21:47) Sinus bradycardia, first degree AV block. IMPRESSIONS 1. Unstable angina with increase in intensity and frequency of chest pain. 2. Abnormal stress test showing anterior ischemia with an intermediate risk. 3. History of coronary artery disease as above. RECOMMENDATIONS 1. Mr. Curry presented with chest pain that is concerning for increasing angina and because of this as well as the abnormal stress test will be recommended cardiac catheterization. 2. The risks, benefits and alternatives were explained to him and his and he consents as such. 3. We will plan a right radial artery approach. 4. Further recommendations will be made based after coronary visualization. Thank you for allowing me to see Jaswant Curry. If there are any questions, please do not hesitate to call. Saranya Galdamez DO VGP/SSB /10:50 PM /6:54 AM
--- NOTE | 2017-04-14 08:43 | HHI.PR ---
Subjective Remarks resting comfortably with no distress. denies chest pain or sob. no new complaints. Objective Vitals Vital Signs Date Time Temp Pulse Resp B/P (MAP) Pulse Ox O2 Delivery O2 Flow Rate FiO2 04/14/17 07:50 98.4 70 14 125/63 (83) 95 04/14/17 06:12 98.7 58 18 139/71 (93) 99 04/14/17 06:00 86 04/14/17 05:00 66 04/14/17 04:45 99 04/14/17 04:00 62 04/14/17 03:00 64 04/14/17 02:00 72 04/14/17 01:00 62 04/14/17 00:00 54 04/13/17 23:00 55 04/13/17 22:49 98.7 62 18 121/52 (75) 99 04/13/17 22:00 66 04/13/17 21:00 62 04/13/17 20:00 66 04/13/17 19:25 98.7 70 18 127/63 (84) 99 04/13/17 19:00 57 04/13/17 18:45 98.9 60 18 122/68 (86) 96 04/13/17 15:53 96 Room Air 04/13/17 10:10 98.7 59 18 113/68 (83) 98 04/13/17 09:00 54 I/O 04/13/17 04/13/17 04/13/17 04/14/17 04/14/17 04/14/17 07:00 15:00 23:00 07:00 15:00 23:00 Intake Total 0 ml 1180 ml Output Total 1080 ml Balance 0 ml 100 ml Intake Oral 0 ml 480 ml IV Total 700 ml Output Urine Total 1080 ml # Voids 1 Result Diagram: 04/14/17 0505 04/14/17 0505 Imaging Last Impressions Myocardial Perfusion Scan Nuc Med 04/12/17 0000 Signed Impressions: Service Date/Time: Wednesday, April 12, 2017 11:34 - CONCLUSION: 1. Moderate size reversible defect involving the anterior wall of concern for ischemia in the left anterior descending artery distribution. 2. Normal wall motion and calculated ejection fraction. RISK CATEGORY: Intermediate (1-3%% Annual Mortality Rate) Jaswant De Luna MD Chest X-Ray 04/11/17 [id number] Signed Impressions: Service Date/Time: Tuesday, April 11, 2017 16:17 - CONCLUSION: No acute disease. Jaswant De Luna MD Objective Remarks GENERAL: This is a well-nourished, well-developed patient, in no apparent distress. CARDIOVASCULAR: Regular rate and regular rhythm without murmurs, gallops, or rubs. RESPIRATORY: Clear to auscultation. Breath sounds equal bilaterally. No wheezes , rales, or rhonchi. GASTROINTESTINAL: Abdomen soft, non-tender, nondistended. Normal, active bowel sounds MUSCULOSKELETAL: Extremities without clubbing, cyanosis, or edema. NEURO: Alert & Oriented x4 to person, place, time, situation. Moves all ext x4 Procedures cardiac cath. Medications and IVs Current Medications Aspirin (Aspirin Chew) 162 mg ONCE ONCE PO Last administered on 04/11/17 17: 12; Start 04/11/17 at 15:45; Stop 04/11/17 at 15:46; Status DC Sodium Chloride (NS Flush) 2 ml UNSCH PRN IV FLUSH FLUSH AFTER USING IV ACCESS ; Start 04/11/17 at 18:15 Sodium Chloride (NS Flush) 2 ml BID IV FLUSH Last administered on 04/13/17 09: 20; Start 04/11/17 at 21:00 Acetaminophen (Tylenol) 500 mg Q4H PRN PO HEADACHE; Start 04/11/17 at 18:15; Status Cancel Nitroglycerin (Nitrostat Sl) 0.4 mg Q5M PRN SL CHEST PAIN; Start 04/11/17 at 18 :15 Clonidine (Catapres) 0.1 mg ONCE ONCE PO Last administered on 04/11/17 18:38 ; Start 04/11/17 at 18:30; Stop 04/11/17 at 18:31; Status DC Acetaminophen (Tylenol) 500 mg Q4H PRN PO HEADACHE Last administered on 04:38; Start 04/11/17 at 18:45 Ondansetron HCl (Zofran Inj) 4 mg Q6H PRN IV PUSH NAUSEA; Start 04/11/17 at 18: 45 Nitroglycerin (Nitrostat Sl) 0.4 mg Q5M PRN SL CHEST PAIN; Start 04/11/17 at 18 :45 Aspirin (Aspirin) 325 mg DAILY PO Last administered on 04/13/17 09:21; Start 04/12/17 at 09:00; Stop 04/13/17 at 15:50; Status DC Clonidine (Catapres) 0.1 mg Q6H PRN PO SBP>180, DBP>110; Start 04/11/17 at 18: 45 Clopidogrel Bisulfate (Plavix) 75 mg DAILY PO Last administered on 04/13/17 09 :21; Start 04/12/17 at 09:00; Stop 04/13/17 at 15:50; Status DC Pravastatin Sodium (Pravachol) 80 mg DAILY PO Last administered on 04/13/17 09 :20; Start 04/12/17 at 09:00 Ramipril (Altace) 2.5 mg DAILY PO Last administered on 04/13/17 09:21; Start 04/12/17 at 09:00; Status Future Hold Regadenoson (Lexiscan Inj) 0.4 mg STK-MED ONCE .ROUTE Last administered on 04/12 12:08; Start 04/12/17 at 12:08; Stop 04/12/17 at 12:09; Status DC Nitroglycerin (Nitroglycerin 2% Oint) 1 inch Q6H TOPICAL Last administered on 02:37; Start 04/12/17 at 15:00 Metoprolol Tartrate (Lopressor) 50 mg DAILY PO Last administered on 04/13/17 09:21; Start 04/12/17 at 14:30 Isosorbide Mononitrate (Imdur) 30 mg DAILY@07 PO Last administered on 06:05; Start 04/13/17 at 07:00 Heparin Sodium/ Sodium Chloride 1,000 ml @ As Directed STK-MED ONCE .ROUTE Last administered on 04/13/17 12:21; Start 04/13/17 at 12:21; Stop 04/13/17 at 12:22; Status DC Sodium Chloride 500 ml @ As Directed STK-MED ONCE .ROUTE ; Start 04/13/17 at 12 :21; Stop 04/13/17 at 12:22; Status DC Midazolam HCl (Versed Inj) 2 mg STK-MED ONCE .ROUTE Last administered on 13:00; Start 04/13/17 at 12:21; Stop 04/13/17 at 12:22; Status DC Verapamil HCl (Isoptin Inj) 5 mg STK-MED ONCE .ROUTE Last administered on 12:21; Start 04/13/17 at 12:21; Stop 04/13/17 at 12:22; Status DC Heparin Sodium (Porcine) (Heparin Inj) 10,000 units STK-MED ONCE .ROUTE Last administered on 04/13/17 13:29; Start 04/13/17 at 12:22; Stop 04/13/17 at 12:23 ; Status DC Nitroglycerin 5 ml @ As Directed STK-MED ONCE .ROUTE Last administered on 12:22; Start 04/13/17 at 12:22; Stop 04/13/17 at 12:23; Status DC Heparin Sodium/ Sodium Chloride 500 ml @ As Directed STK-MED ONCE .ROUTE Last administered on 04/13/17 12:48; Start 04/13/17 at 12:48; Stop 04/13/17 at 12:49 ; Status DC Sodium Chloride 500 ml @ As Directed STK-MED ONCE .ROUTE ; Start 04/13/17 at 12 :48; Stop 04/13/17 at 12:49; Status DC Fentanyl Citrate (fentaNYL INJ) 100 mcg STK-MED ONCE .ROUTE Last administered on 04/13/17 13:01; Start 04/13/17 at 13:00; Stop 04/13/17 at 13:01; Status DC Heparin Sodium (Porcine) (Heparin Inj) 10,000 units STK-MED ONCE .ROUTE Last administered on 04/13/17 15:11; Start 04/13/17 at 15:10; Stop 04/13/17 at 15:11 ; Status DC Ticagrelor (Brilinta) 180 mg STK-MED ONCE PO Last administered on 04/13/17 15: 18; Start 04/13/17 at 15:16; Stop 04/13/17 at 15:17; Status DC Sodium Chloride 1,000 ml @ 70 mls/hr [id number] IV Last administered on 20:42; Start 04/13/17 at 15:46; Stop 04/14/17 at 03:45; Status DC Oxycodone/ Acetaminophen (Percocet 5-325 Mg) 1 tab Q4H PRN PO PAIN SCALE 3 TO 5; Start 04/13/17 at 16:00 Oxycodone/ Acetaminophen (Percocet 10-325 Mg) 1 tab Q4H PRN PO PAIN SCALE 6 TO 10; Start 04/13/17 at 16:00 Morphine Sulfate (Morphine Inj) 2 mg Q30M PRN IV PUSH BREAKTHROUGH PAIN; Start 04/13/17 at 16:00 Ticagrelor (Brilinta) 90 mg BID PO ; Start 04/14/17 at 09:00 Miscellaneous Information 1 ONCE ONCE XX ; Start 04/13/17 at 16:00; Stop at 16:10; Status DC Aspirin (Aspirin Chew) 81 mg DAILY CHEW ; Start 04/14/17 at 09:00 Iohexol (OMNIPAQUE 350 INJ (Console Manager)) 100 ml STK-MED ONCE OTHER ; Start at 18:04; Stop 04/13/17 at 16:23; Status DC Iohexol (OMNIPAQUE 350 INJ (Console Manager)) 50 ml STK-MED ONCE OTHER ; Start at 18:04; Stop 04/13/17 at 16:23; Status DC Bacitracin (Bacitracin Oint Packet) 0.9 gm STK-MED ONCE .ROUTE ; Start 04/13/17 at 22:41; Stop 04/13/17 at 22:42; Status DC A/P Assessment and Plan A/P - unstable angina with ischemia of the anterior wall s/p cardiac cath with ; Significant coronary artery disease with overall small vessel disease status post bare metal stent x2 (proximal 2 x 18, distal 2 x 23 overlapped) to the mid- LAD with residual 99% stenosis in an overall small diagonal as well as distal LAD 90% stenosis in an overall small vessel. continue aspirin, Brilinta, BB, and statin imdur was added- Discharge Planning dc home- hopefully soon-when cleared by cardiology- f/u; pcp and cardiology. see med list. d/w the patient. Cece Shearer MD Apr 14, 2017 08:43
[2017-04-14] MEDS ORDERED: ISOS30TA3 PO (08:44)
[2017-04-14] MEDS ORDERED: BRIL90TA PO (08:44)
--- NOTE | 2017-04-14 08:49 | HHI.DS ---
Discharge Summary Admission Date Apr 11, 2017 at 18:03 Discharge Date: Apr 14, 2017 Admitting Diagnosis chest pain, r/o ACS (1) Unstable angina ICD Code: I20.0 - Unstable angina Diagnosis: Principal Procedures cardiac cath. Brief History - From Admission 72-year-old male with history of coronary artery disease including 3 angioplasties and one cardiac stent presents to emergency room for further evaluation of chest pain. Reports history of "normal angina" since 2003 consists of exertional substernal chest tightness which quickly subsides after walking 1/4 mile or within a few minutes into his activity. Endorses normal angina is not predictable, stating some times does not develop angina symptoms at all. Rarely requires nitroglycerin SL. Presents to ER, as directed by his pants presser in [place], due increasing frequency and intensity of anginal symptoms. CBC/BMP: 04/14/17 0505 04/14/17 0505 Significant Findings Laboratory Tests Test 04/11/17 15:50 04/11/17 19:55 04/11/17 21:55 04/14/17 05:05 Neutrophils (%) (Auto) 71.1 % (16.0-70.0) 71.4 % (16.0-70.0) Random Glucose 110 MG/DL (74-106) Estimat Glomerular Filtration Rate 73 ML/MIN (>89) 75 ML/MIN (>89) Troponin I LESS THAN 0.02 NG/ML LESS THAN 0.02 NG/ML LESS THAN 0.02 NG/ML Red Blood Count 4.06 MIL/MM3 (4.50-5.90) Hemoglobin 12.3 GM/DL (13.0-17.0) Hematocrit 35.3 % (39.0-51.0) Platelet Count 139 TH/MM3 (150-450) Monocytes (%) (Auto) 9.2 % (0.0-8.0) Calcium Level 8.1 MG/DL (8.5-10.1) Chloride Level 108 MEQ/L (98-107) PE at Discharge GENERAL: This is a well-nourished, well-developed patient, in no apparent distress. CARDIOVASCULAR: Regular rate and regular rhythm without murmurs, gallops, or rubs. RESPIRATORY: Clear to auscultation. Breath sounds equal bilaterally. No wheezes , rales, or rhonchi. GASTROINTESTINAL: Abdomen soft, non-tender, nondistended. Normal, active bowel sounds MUSCULOSKELETAL: Extremities without clubbing, cyanosis, or edema. NEURO: Alert & Oriented x4 to person, place, time, situation. Moves all ext x4 Hospital Course - unstable angina with ischemia of the anterior wall s/p cardiac cath with ; Significant coronary artery disease with overall small vessel disease status post bare metal stent x2 (proximal 2 x 18, distal 2 x 23 overlapped) to the mid- LAD with residual 99% stenosis in an overall small diagonal as well as distal LAD 90% stenosis in an overall small vessel. continue aspirin, Brilinta, BB, and statin imdur was added- Pt Condition on Discharge: Good Discharge Disposition: Discharge Home Discharge Time: <= 30 minutes Discharge Instructions DIET: Follow Instructions for: Heart Healthy Diet Activities you can perform: Regular-No Restrictions Follow up Referrals: Cardiology PCP Follow-up New Medications: Isosorbide Mononitrate ER (Isosorbide Mononitrate ER) 30 Mg Barbra 30 MG PO DAILY@07 for cad for 30 Days, TAB 0 Refills Ticagrelor (Brilinta) 90 Mg Tab 90 MG PO BID for cad for 30 Days, #60 TAB 0 Refills Continued Medications: Aspirin (Aspirin) 81 Mg Chew 81 MG CHEW DAILY, TAB 0 Refills Folic Acid (Folic Acid) 0.4 Mg Tab 400 MCG PO DAILY for Nutritional Supplement, TAB 0 Refills Metoprolol Tartrate (Metoprolol Tartrate) 50 Mg Tab 50 MG PO DAILY, #30 TAB 0 Refills Pravastatin (Pravastatin) 80 Mg Tab 80 MG PO DAILY for Cholesterol Management, #30 TAB 0 Refills Ramipril (Ramipril) 2.5 Mg Cap 2.5 MG PO DAILY, #30 CAP 0 Refills Discontinued Medications: Clopidogrel (Clopidogrel) 75 Mg Tab 75 MG PO DAILY for Blood Clot Prevention, #30 TAB 0 Refills Cece Shearer MD Apr 14, 2017 08:49
[2017-04-14] MEDS ORDERED: ASPIRIN 81 MG CHEW TAB CHEW SCH (09:00)
[2017-04-14] MEDS ORDERED: TICAGRELOR 90 MG TAB PO SCH (09:00)
[2017-04-14] MEDS: METOPROLOL TARTRATE 50 MG TAB PO SCH (10:08)
[2017-04-14] MEDS: PRAVASTATIN SOD 80 MG TAB PO SCH (10:08)
[2017-04-14] MEDS: SODIUM CHLORIDE 0.9% FLUSH 10 ML FLUSH IV FLUSH SCH (10:09)
--- NOTE | 2017-04-14 12:47 | PD.CARD.PN ---
Subjective Subjective Remarks No events over night Up and ambulating No chest pain Objective Medications Current Medications Medications (Trade) Dose Ordered Sig/Guido Route Start Time Stop Time Status Last Admin (NS Flush) 2 ml UNSCH PRN IV FLUSH 04/11/17 18:15 (NS Flush) 2 ml BID IV FLUSH 04/11/17 21:00 04/14/17 10:09 (Nitrostat Sl) 0.4 mg Q5M PRN SL 04/11/17 18:15 (Tylenol) 500 mg Q4H PRN PO 04/11/17 18:45 04/13/17 04:38 (Zofran Inj) 4 mg Q6H PRN IV PUSH 04/11/17 18:45 (Nitrostat Sl) 0.4 mg Q5M PRN SL 04/11/17 18:45 (Catapres) 0.1 mg Q6H PRN PO 04/11/17 18:45 (Pravachol) 80 mg DAILY PO 04/12/17 09:00 04/14/17 10:08 (Altace) 2.5 mg DAILY PO 04/12/17 09:00 Future Hold 04/13/17 09:21 (Nitroglycerin 2% Oint) 1 inch Q6H TOPICAL 04/12/17 15:00 04/14/17 02:37 (Lopressor) 50 mg DAILY PO 04/12/17 14:30 04/14/17 10:08 (Imdur) 30 mg DAILY@07 PO 04/13/17 07:00 04/14/17 06:05 (Percocet 5-325 Mg) 1 tab Q4H PRN PO 04/13/17 16:00 (Percocet 10-325 Mg) 1 tab Q4H PRN PO 04/13/17 16:00 (Morphine Inj) 2 mg Q30M PRN IV PUSH 04/13/17 16:00 (Brilinta) 90 mg BID PO 04/14/17 09:00 04/14/17 10:08 (Aspirin Chew) 81 mg DAILY CHEW 04/14/17 09:00 04/14/17 10:08 Vital Signs / I&O Vital Signs Date Time Temp Pulse Resp B/P (MAP) Pulse Ox O2 Delivery O2 Flow Rate FiO2 04/14/17 11:00 79 04/14/17 10:05 97.3 77 18 114/76 (89) 04/14/17 10:05 77 04/14/17 09:23 76 04/14/17 08:00 66 04/14/17 07:50 98.4 70 14 125/63 (83) 95 04/14/17 06:12 98.7 58 18 139/71 (93) 99 04/14/17 06:00 86 04/14/17 05:00 66 04/14/17 04:45 99 04/14/17 04:00 62 04/14/17 03:00 64 04/14/17 02:00 72 04/14/17 01:00 62 04/14/17 00:00 54 04/13/17 23:00 55 04/13/17 22:49 98.7 62 18 121/52 (75) 99 04/13/17 22:00 66 04/13/17 21:00 62 04/13/17 20:00 66 04/13/17 19:25 98.7 70 18 127/63 (84) 99 04/13/17 19:00 57 04/13/17 18:45 98.9 60 18 122/68 (86) 96 04/13/17 15:53 96 Room Air I/O 04/13/17 04/13/17 04/13/17 04/14/17 04/14/17 04/14/17 07:00 15:00 23:00 07:00 15:00 23:00 Intake Total 0 ml 1180 ml Output Total 1080 ml Balance 0 ml 100 ml Intake Oral 0 ml 480 ml IV Total 700 ml Output Urine Total 1080 ml # Voids 1 Physical Exam GENERAL: NAD, AAOx3 SKIN: Warm and dry. HEAD: Atraumatic. Normocephalic. EYES: Pupils equal and round. No scleral icterus. No injection or drainage. ENT: No nasal bleeding or discharge. Mucous membranes pink and moist. NECK: Trachea midline. No JVD. CARDIOVASCULAR: Regular rate and rhythm. RESPIRATORY: No accessory muscle use. Clear to auscultation. Breath sounds equal bilaterally. GASTROINTESTINAL: Abdomen soft, non-tender, nondistended. Hepatic and splenic margins not palpable. MUSCULOSKELETAL: Extremities without clubbing, cyanosis, or edema. No obvious deformities. Right radial no hematoma, neurovascularly intact distally NEUROLOGICAL: Awake and alert. No obvious cranial nerve deficits. Motor grossly within normal limits. Five out of 5 muscle strength in the arms and legs. Normal speech. PSYCHIATRIC: Appropriate mood and affect; insight and judgment normal. Laboratory Laboratory Tests Test 04/14/17 05:05 White Blood Count 8.2 TH/MM3 Red Blood Count 4.06 MIL/MM3 Hemoglobin 12.3 GM/DL Hematocrit 35.3 % Mean Corpuscular Volume 87.0 FL Mean Corpuscular Hemoglobin 30.3 PG Mean Corpuscular Hemoglobin Concent 34.8 % Red Cell Distribution Width 12.9 % Platelet Count 139 TH/MM3 Mean Platelet Volume 8.9 FL Neutrophils (%) (Auto) 71.4 % Lymphocytes (%) (Auto) 18.4 % Monocytes (%) (Auto) 9.2 % Eosinophils (%) (Auto) 0.8 % Basophils (%) (Auto) 0.2 % Neutrophils # (Auto) 5.8 TH/MM3 Lymphocytes # (Auto) 1.5 TH/MM3 Monocytes # (Auto) 0.8 TH/MM3 Eosinophils # (Auto) 0.1 TH/MM3 Basophils # (Auto) 0.0 TH/MM3 CBC Comment DIFF FINAL Differential Comment Blood Urea Nitrogen 14 MG/DL Creatinine 0.99 MG/DL Random Glucose 84 MG/DL Calcium Level 8.1 MG/DL Sodium Level 142 MEQ/L Potassium Level 3.7 MEQ/L Chloride Level 108 MEQ/L Carbon Dioxide Level 27.0 MEQ/L Anion Gap 7 MEQ/L Estimat Glomerular Filtration Rate 75 ML/MIN Assessment and Plan Problem List: (1) Unstable angina ICD Codes: I20.0 - Unstable angina (2) CAD (coronary artery disease) ICD Codes: I25.10 - Atherosclerotic heart disease of [place] coronary artery without angina pectoris (3) Abnormal nuclear cardiac imaging test ICD Codes: R93.1 - Abnormal findings on diagnostic imaging of heart and coronary circulation Assessment and Plan 1) Unstable angina s/p BMSx2 to LAD Distal LAD with 90% stenosis, but small vessel Diag 99%, but small vessel ASA/Brilinta 2) Con't BB/Imdur/Statin/YOLANDA-I 3) Cardiovascularly stable for discharge today Problem Qualifiers (1) CAD (coronary artery disease): Felice Jackson DO Apr 14, 2017 12:47
--- NOTE | 2017-04-14 16:44 | TR ---
Date Performed: 04/12/2017 Time Performed: 12:17:30 DOCTOR: Samira Anne DRUG LIST: CLINICAL HISTORY: REASON FOR TEST: REASON FOR ENDING: OBSERVATION: CONCLUSION: Lexiscan stress test was performed under standard four minute protocol. Radionuclid e was injected one minute prior to ending the test. No electrocardiographic abormalities were present to suggest ischemia. Nuclear imaging and interpretation are pending. COMMENTS:
--- NOTE | 2017-04-14 16:44 | EKG ---
Date Performed: 04/13/2017 Time Performed: 16:22:02 PTAGE: 72 years EKG: Sinus rhythm with borderline 1st degree A-V block. Borderline ECG Since PREVIOUS TRACING , no significant change noted PREVIOUS TRACIN04/11/2017 21.47 DOCTOR: Samira Anne Interpretating Date/Time 04/14/2017 16:44:01
--- NOTE | 2017-04-16 07:48 | CATHPROC ---
[employer] HIS Report Study Information Study Number Scheduled Start Study Start [id number] 04/13/2017 Apr 13 2017 12:12PM Referring Institution Admit Source Facility Department 1 Emergency department [facility] - Gas Engine Repairer Physician and Clinical Staff Initial Felice Dickerson Centrifugal Spinner Nelsy Ennis RN Recorder Amrita Archer,RT(R) Scrub Wesley Boykin RCIS(BS) Procedures Performed Procedure Location (Site) Vessel Name Coronary Angiograms LCA Left Coronary Coronary Angiograms RCA Right Coronary L Heart Cath PTCA LAD Mid Left Coronary Stent LAD Mid Left Coronary Wire insertion Radial (right) Radial Art. Equipment Time Earth Science Technical Officer Description Size Mfg Part Number Used/Scraped [id number] 14:40 BIANCHI [employer] STENT, 2.0 18 MINI-VISION RX 2.0 18 Used *[id number] 14:29 [employer]CHI [employer] STENT, 2.0 23 MINI-VISION RX 2.0 23 Used *[id number] 14:08 [employer] WIRE, ASAHI PROWATER 180CM 180CM Used *[id number] WIRE, BALANCE MIDDLEWEIGHT [id number] 13:22 [employer] 190CM Used 190CM *[id number] TRANSDUCER, TRUWAVE [id number] 12:30 LOPEZ LINDSEY * Used W/STOCKCOCK *[id number] 14:10 [employer] SCI[employer]IFIC BALLOON, 2.0 12MM EMERGE MR 2.0 12MM Used *[id number] 534-576T *[id number] 534-518T *[id number] 534-523T *[id number] 12:30 [employer] PACK, CCL CUSTOM * Used *[id number] 12:30 [employer] SUPPORT, ARTERIAL ADULT [id number] *[id number] Used BALLOON, 2.0 X 12MM NC [id number] 15:00 MEDTRONIC 12MM Used EUPHORA *[id number] BALLOON, 2.0 X 15MM NC [id number] 14:52 [employer]TRONIC 12MM Used EUPHORA *[id number] 13:30 MEDTR[employer]IC/AVE EBU 3.5 Z2 GUIDE CATHETER FR 6 Used *[id number] 13:24 [employer] 30 JONI INDEFLATOR Used *[id number] BAND, RADIAL COMPRESSION TR [id number] 15:05 [employer]ICAL 24CM Used SHORT 24 *[id number] 13:24 [employer] PACK, ANGIOPLASTY * [id number] Used [id number] 12:57 [employer] WIRE, EXCHANGE 260CM 3MMJ 260CM Used *[id number] 12:30 NAMIC MANIFOLD, 4 PORT * Used *[id number] 12:30 [employer]COMED OMNIPAQUE, 350 MG, 150ML 150ML [id number] Used [id number] 12:30 [facility] BLANKET,WARM AIR CCL * Used *[id number] SHEATH, FR6 TRANSRADIAL RM*[id number] 12:30 [employer]iencesc[employer] MEDICAL FR 6 Used SLENDER 10CM *[id number] 13:35 [employer]OL[employer]O PRIME WIRE, VERRATA 185CM 185CM 99151 *[id number] Used [id number] Scrap: device 12:30 [employer] MED[employer] WIRE, EXCHANGE 260CM 3MMJ 260CM *[id number] non-sterile Equipment Model, Serial, Lot Number and Expiration Data Description Model Number Serial Number Lot Number Expiration Date BALLOON, 2.0 12MM EMERGE MR [id number] 10-28-2019 PRIME WIRE, VERRATA 185CM [id number] 02-17-2020 STENT, 2.0 18 MINI-VISION RX [id number] 09-16-2017 STENT, 2.0 23 MINI-VISION RX [id number] 09-16-2017 History: Current Medications Medication Dosage/Unit Route Frequency Last Date/Time Taken Beta Alvarado ASA PLAVIX Statins (any) History: Allergies Allergy Reaction No Known Allergies History: Risk Factors Family History of Hypertension Dyslipidemia Previous ID Previous Heart Failure Premature CAD Yes Yes Yes No No Prior PCI Prior PCIDate Prior CABG Yes 07/20/2003 No Cerebrovascular Peripheral Artery Chronic Lung On Dialysis Diabetes Disease Disease Disease No No No No No History: Symptoms/Diagnosis Selection Items Chest pain History: Stress Tests Stress or Imaging Studies Performed Yes Standard Exercise Stress Test No Stress Echo No Stress Test SPECT Stress Test SPECT Result Stress Test SPECT Ischemia Risk/Extent Yes Positive Intermediate Stress Test CMR No Cardiac CTA Coronary Calcium Score No No History: Other Disease Selection Items CAD HTN History: Other Current Smoker No Labs Hgb (g/dl) Hct (%) WBC (l/cumm) Platelets (thousands) 11.60-17.00 35.00-51.00 4.00-11.00 150.00-450.00 14.3 42.5 7.2 167 Glucose (mg/dl) BUN (mg/dl) Creatinine (mg/dl) BUN:Creatinine (1:x) 74.00-106.00 7.00-18.00 0.50-1.30 10.00-20.00 110 14 1.0 14 Na (meq/l) K (meq/l) Cl (meq/l) CO2 (mmol/L) Ca (mg/dl) 136.00-145.00 3.50-5.10 98.00-107.00 21.00-32.00 8.50-10.10 141 3.9 107 29.2 8.9 PT (sec) PTT (sec) INR (PTT:PT) 9.80-11.60 24.30-30.10 0.90-1.10 10.4 24.3 0.9 Troponin I (ng/ml) CPK (u/l) CPK-MB (ng/ML) 0.02-0.05 26.00-308.00 0.50-3.60 0.02 77 Not Drawn Medication Medication Total Dose (Bolus/Oral) Medication Total Dosage/Unit 1% XYLOCAINE 20 mL BRILINTA 180 mg FENTANYL 50 mcg HEPARIN 8800 units NTG (IC) 350 mcg RADIAL COCKTAIL 5 mL (Bolus) VERSED 0.5 mg Medications (Bolus/Oral) Medication Time Given Dosage/Unit Administered By Reason VERSED 04/13/2017 1:00:09 PM 0.5 mg Nelsy Ennis 0.5 mg VERSED given in lab by Nelsy Ennis, RN in Right Antecubital via Peripheral IV. Ordered by Felice Jackson. 1% XYLOCAINE 04/13/2017 1:00:32 PM 20 mL Felice Jackson 20 mL 1% XYLOCAINE given in lab by Felice Jackson in Right Radial via Subcutaneous. Ordered by Felice Austin. FENTANYL 04/13/2017 1:01:00 PM 25 mcg Moira Ennisaret 25 mcg FENTANYL given in lab by Nelsy Ennis, RN in Right Antecubital via Peripheral IV. Ordered by Felice Jackson. Ntg 200mcg Verapamil 2.5mg Heparin RADIAL COCKTAIL 04/13/2017 1:02:12 PM 5 mL (Bolus) Felice Jackson 3000U 5 mL (Bolus) RADIAL COCKTAIL given in lab by Felice Jackson via Radial. Using [Solution Name]. Ord ered by Felice Jackson. Reason: Ntg 200mcg Verapamil 2.5mg Heparin 3300U. HEPARIN 04/13/2017 1:29:00 PM 5800 units Nelsy Ennis 5800 units HEPARIN given in lab by Nelsy Ennis RN in Right Antecubital via Peripheral IV. Order ed by Felice Jackson. FENTANYL 04/13/2017 2:13:00 PM 25 mcg Nelsy Ennis 25 mcg FENTANYL given in lab by Nelsy Ennis RN in Right Antecubital via Peripheral IV. Ordered by Felice Jackson. NTG (IC) 04/13/2017 2:22:00 PM 150 mcg Felice Jackson 150 mcg NTG (IC) given in lab by Felice Jackson in Right Radial via Intra-coronary. Ordered by Felice Austin. HEPARIN 04/13/2017 2:38:00 PM 1000 units Kiana Ennist 1000 units HEPARIN given in lab by Nelsy Ennis RN in Right Antecubital via Peripheral IV. Order ed by Felice Jackson. HEPARIN 04/13/2017 3:00:00 PM 1000 units Kiana Ennist 1000 units HEPARIN given in lab by Nelsy Ennis RN in Right Antecubital via Peripheral IV. Order ed by Felice Jackson. NTG (IC) 04/13/2017 3:04:58 PM 200 mcg Felice Jackson 200 mcg NTG (IC) given in lab by Felice Jackson in Right Radial via Intra-coronary. Ordered by Felice Austin. HEPARIN 04/13/2017 3:11:04 PM 1000 units Moira Ennisaret 1000 units HEPARIN given in lab by Nelsy Ennis RN in Right Antecubital via Peripheral IV. Order ed by Felice Jackson. BRILINTA 04/13/2017 3:19:00 PM 180 mg Moira Ennisaret 180 mg BRILINTA given in lab by Nelsy Ennis RN via Oral. Ordered by Felice Jackson. Initial Case Assessment Cardiovascular HR Rhythm NIBP Chest Pain 57 sr 131/68 0 Edema Present Skin color Skin None Normal Warm Dry Circulatory - Right Pulses Dorsalis Pedis Femoral Radial 2 2 2 Scale (0,1,2,3,4,d) Scale (0,1,2,3,4,d) Neurological State Oriented to time-place- Alert Moves all extremities person Respiration - General Respiration Rate SpO2 (%) (B/min) 13 100 Final Case Assessment Cardiovascular HR Rhythm NIBP Chest Pain 57 sr 131/68 0 Edema Present Skin color Skin None Normal Warm Dry Circulatory - Right Pulses Dorsalis Pedis Femoral Radial 2 2 2 Scale (0,1,2,3,4,d) Scale (0,1,2,3,4,d) Neurological State Oriented to time-place- Alert Moves all extremities person Respiration - General Respiration Rate SpO2 (%) (B/min) 13 100 Chronological Log Time Study Chronological Log 12:19:57 Patient arrived via Bed. 12:20:17 Patient Name, D.O.B, / Armband Verified By R.N. Vitals capture started with the following parameters, Patient=Adult, Interval=5 min, Initial Pr liweoi=100 mmHg, 12:24:53 Deflation Rate=5 mmHg, Cuff placed on Left Ankle 12:25:34 HR=56 bpm, LZWB=400/68 mmhg, EjI7=542.0 %, Resp=13 B/min, San=2 12:25:37 Consent signed by the physician and the patient and verified by the Gas Engine Repairer staff. 12:25:38 Pre-op and post- op instructions given; patient acknowledges understanding of instructions. 12:25:39 Verbal Stimulation=2 Physical Stimulation=2 Airway=2 Respiration=2 TOTAL=8. (0=absent, 1=li mited, 2=present) 12:25:42 Presedation assessment performed by Gas Engine Repairer RN. 12:25:49 Allens test performed on the right radial and ulnar artery. Assessment: Initial Case, HR=57 BPM, Rhythm=sr, CTIF=034/68 mmhg, Chest Pain=0, Edema=None, Col or=Normal, Skin = Warm, Dry 12:26:00 Right Pulses: Georges Ped=2, Femoral=2, Radial=2 Neurological: State=Alert, Ox3, CRUZ Respiration: Resp=13 B/min, FmL0=790 % 12:30:27 MUDQ=166/66 mmhg, SpO2=98.0 %, San=2 12:35:05 Patient has been NPO for Less than 6Hrs. 12:35:05 Skin Breakdown- none per pt 12:35:13 Patient Warmer Placed on the Table. 12:35:13 Tawanna Prominences Protected 12:35:16 A # 18 IV was noted in the Antecubital (right). Grade = 0 12:35:26 HR=57 bpm, NUJF=385/68 mmhg, SpO2=96.0 %, Resp=10 B/min, San=2 12:39:12 Reference ECG taken 12:40:25 HR=55 bpm, MCDX=137/73 mmhg, SpO2=97.0 %, Resp=15 B/min, San=2 12:45:30 HR=56 bpm, VUHV=987/63 mmhg, SpO2=97.0 %, Resp=24 B/min, San=2 12:46:28 Right Radial and groin(s) prepped with 2% chlorhexidine, and draped after a 3 min. waiting time. 12:50:01 MD arrived. 12:50:27 HR=53 bpm, SODC=412/62 mmhg, SpO2=95.0 %, Resp=12 B/min, San=2 12:51:40 Pressure channel 1 zeroed. 12:55:26 HR=53 bpm, DFIE=282/63 mmhg, Resp=13 B/min, San=2 Time Out. Correct patient, correct procedure, correct physician, power injector not loaded with contrast with surgical 12:59:39 team present. Time Out Concurred by MD, individual staff in procedure. 0.5 mg VERSED given in lab by Nelsy Ennis, PHILLIP in Right Antecubital via Peripheral IV. Orde red by Manuel, 13:00:09 Felice. 13:00:27 HR=54 bpm, WBHF=856/66 mmhg, SpO2=98.0 %, Resp=22 B/min, San=2 20 mL 1% XYLOCAINE given in lab by Felice Jackson in Right Radial via Subcutaneous. Ordered by Manuel, 13:00:32 Felice. 25 mcg FENTANYL given in lab by Nelsy Ennis, RN in Right Antecubital via Peripheral IV. Or dered by Manuel, 13:01:00 Felice. 13:01:46 Access site was Right Radial Artery. A SHEATH, FR6 TRANSRADIAL SLENDER 10CM FR 6 was advanced into the Radial (right) using the Perc utaneous 13:01:56 technique. 5 mL (Bolus) RADIAL COCKTAIL given in lab by Felice Jackson via Radial. Using [Solution Name ]. Ordered by 13:02:12 Felice Jackson. Reason: Ntg 200mcg Verapamil 2.5mg Heparin 3300U. A 3DRC INFINITI CATHETER FR 5 was advanced over a wire. OMNIPAQUE, 350 MG, 150ML 150ML was used for 13:02:44 injections. Recorded Pressure: LV, HR=66, Condition=Condition 1 13:04:44 (Left Ventricle) LV 99/-1/3 Recorded Pressure: LV, Ao, HR=59, Condition=Condition 1 13:05:06 (Left Ventricle) LV 86/-4/3, (Aorta) Ao 88/47/64 13:05:32 HR=57 bpm, TGTP=175/55 mmhg, SpO2=95.0 %, Resp=15 B/min, San=2 13:05:53 The RCA was injected and visualized at various angles. OMNIPAQUE, 350 MG, 150ML 150ML used . After removing the current catheter a JL 3.5 INFINITI CATHETER FR 5 was advanced over a WIRE, E XCHANGE 260CM 13:07:40 3MMJ 260CM. Recorded Pressure: Ao, HR=55, Condition=Condition 1 13:09:43 (Aorta) Ao 89/48/66 13:10:05 The LCA was injected and visualized at various angles. OMNIPAQUE, 350 MG, 150ML 150ML used . 13:10:25 HR=56 bpm, ROFX=245/59 mmhg, SpO2=95.0 %, Resp=13 B/min, San=2 13:15:28 HR=55 bpm, ASLT=065/59 mmhg, SpO2=95.0 %, Resp=14 B/min, San=2 After removing the current catheter a JR 5.0 INFINITI CATHETER FR 5 was advanced over a WIRE, E XCHANGE 260CM 13:17:22 3MMJ 260CM. 13:20:32 HR=55 bpm, VEZI=359/61 mmhg, SpO2=95.0 %, Resp=14 B/min, San=2 13:25:31 HR=58 bpm, WZCC=835/64 mmhg, SpO2=95.0 %, Resp=15 B/min, San=2 5800 units HEPARIN given in lab by Nelsy Ennis, RN in Right Antecubital via Peripheral IV. Ordered by Manuel, 13:29:00 Felice. 13:30:32 HR=54 bpm, SVIK=635/59 mmhg, SpO2=96.0 %, Resp=15 B/min, San=2 After removing the current catheter a EBU 3.5 Z2 GUIDE CATHETER FR 6 was advanced over a WIRE, EXCHANGE 13:31:11 260CM 3MMJ 260CM. 13:35:35 HR=55 bpm, PVGL=774/57 mmhg, SpO2=93.0 %, Resp=13 B/min, San=2 13:40:32 HR=56 bpm, VPYV=614/52 mmhg, Resp=15 B/min, San=2 13:44:49 Flow Wire was was placed in the LAD Mid. The FFR measures ~FFR~ percent. The IFR measures ~I FR~ Percent. 13:45:31 HR=53 bpm, QOQG=213/60 mmhg, SpO2=95.0 %, Resp=17 B/min, San=2 13:50:32 HR=55 bpm, ZDII=392/57 mmhg, SpO2=93.0 %, Resp=15 B/min, San=2 13:55:33 HR=57 bpm, PCMX=289/57 mmhg, SpO2=93.0 %, Resp=16 B/min, San=2 13:55:41 The PRIME WIRE, VERRATA 185CM 185CM was removed without achieving measurement. 13:55:47 Activated Clotting Time Drawn 13:56:49 Flow Wire was was placed in the LAD Mid. The FFR measures ~FFR~ percent. The IFR measures 0 .8 Percent. 13:59:59 Case Start 14:00:00 ACT (Normal Range 90-180) = 302 14:00:34 HR=56 bpm, CPXG=160/63 mmhg, SpO2=95 %, Resp=16 B/min, San=2 14:05:14 A WIRE, BALANCE MIDDLEWEIGHT 190CM 190CM was inserted via Radial (right). (LAD) 14:05:35 HR=56 bpm, TORZ=668/57 mmhg, SpO2=93.0 %, Resp=18 B/min, San=2 14:06:51 The PRIME WIRE, VERRATA 185CM 185CM was removed. 14:07:47 A WIRE, ASAHI PROWATER 180CM 180CM was inserted via Radial (right). (diag) 14:10:30 HR=57 bpm, LRUI=153/59 mmhg, SpO2=95 %, Resp=16 B/min, San=2 25 mcg FENTANYL given in lab by Nelsy Ennis, RN in Right Antecubital via Peripheral IV. Or dered by Manuel, 14:13:00 Felice. 14:13:00 Activated Clotting Time Drawn 14:15:33 HR=56 bpm, KBTS=104/60 mmhg, SpO2=95 %, Resp=14 B/min, San=2 A BALLOON, 2.0 12MM EMERGE MR 2.0 12MM was inserted over WIRE, BALANCE MIDDLEWEIGHT 190CM 190CM via 14:15:33 the Radial (right). 14:19:00 ACT (Normal Range 90-180) = 296 A BALLOON, 2.0 12MM EMERGE MR 2.0 12MM over a WIRE, BALANCE MIDDLEWEIGHT 190CM 190CM in the LAD Mid 14:19:03 was inflated using a 30 JONI INDEFLATOR at 6 joni for 20 sec. A BALLOON, 2.0 12MM EMERGE MR 2.0 12MM over a WIRE, BALANCE MIDDLEWEIGHT 190CM 190CM in the LAD Mid 14:20:01 was inflated using a 30 JONI INDEFLATOR at 8 joni for 20 sec. 14:20:34 HR=56 bpm, QIFU=091/69 mmhg, SpO2=93.0 %, Resp=13 B/min, San=2 A BALLOON, 2.0 12MM EMERGE MR 2.0 12MM over a WIRE, BALANCE MIDDLEWEIGHT 190CM 190CM in the LAD Mid 14:20:47 was inflated using a 30 JONI INDEFLATOR at 8 joni for 15 sec. 14:21:32 Balloon Removed. 14:22:00 150 mcg NTG (IC) given in lab by Felice Jackson in Right Radial via Intra-coronary. Orde red by Felice Jackson. 14:25:35 HR=60 bpm, PBNW=316/61 mmhg, SpO2=97 %, Resp=14 B/min, San=2 An STENT, 2.0 23 MINI-VISION RX 2.0 23 Bare Metal Stent was inserted through a EBU 3.5 Z2 GUIDE CATHETER FR 14:30:21 6 over a WIRE, BALANCE MIDDLEWEIGHT 190CM 190CM. 14:31:13 HR=58 bpm, LMBT=875/63 mmhg, SpO2=95 %, Resp=11 B/min, San=2 A STENT, 2.0 23 MINI-VISION RX 2.0 23 was deployed using a 30 JONI INDEFLATOR at 10 atmospheres for 20 seconds 14:35:09 in the LAD Mid. 14:35:36 HR=59 bpm, VLHB=756/70 mmhg, SpO2=94.0 %, Resp=16 B/min, San=2 14:37:01 Re-inflated the stent balloon in the LAD Mid to 10 JONI for 10 seconds. 14:37:57 Delivery device removed 1000 units HEPARIN given in lab by Nelsy Ennis RN in Right Antecubital via Peripheral IV. Ordered by Manuel, 14:38:00 Felice. 14:40:41 HR=57 bpm, ASOU=412/67 mmhg, SpO2=95.0 %, Resp=14 B/min, San=2 An STENT, 2.0 18 MINI-VISION RX 2.0 18 Bare Metal Stent was inserted through a EBU 3.5 Z2 GUIDE CATHETER FR 14:42:02 6 over a WIRE, BALANCE MIDDLEWEIGHT 190CM 190CM. A STENT, 2.0 18 MINI-VISION RX 2.0 18 was deployed using a 30 JONI INDEFLATOR at 12 atmospheres for 25 seconds 14:42:52 in the LAD Mid. 14:43:46 Re-inflated the stent balloon in the LAD Mid to 10 JONI for 10 seconds. 14:44:35 Delivery device removed 14:45:25 Activated Clotting Time Drawn 14:45:40 HR=57 bpm, WBDV=898/68 mmhg, SpO2=96.0 %, Resp=18 B/min, San=2 14:50:43 HR=57 bpm, SEEO=620/63 mmhg, SpO2=95.0 %, Resp=14 B/min, San=2 A BALLOON, 2.0 X 15MM NC EUPHORA 12MM was inserted over WIRE, BALANCE MIDDLEWEIGHT 190CM 190CM via 14:52:44 the LAD Mid. A BALLOON, 2.0 X 15MM NC EUPHORA 12MM over a WIRE, BALANCE MIDDLEWEIGHT 190CM 190CM in the LAD Mid 14:54:07 was inflated using a 30 JONI INDEFLATOR at 12 joni for 15 sec. A BALLOON, 2.0 X 15MM NC EUPHORA 12MM over a WIRE, BALANCE MIDDLEWEIGHT 190CM 190CM in the LAD Mid 14:54:38 was inflated using a 30 JONI INDEFLATOR at 14 joni for 20 sec. A BALLOON, 2.0 X 15MM NC EUPHORA 12MM over a WIRE, BALANCE MIDDLEWEIGHT 190CM 190CM in the LAD Mid 14:55:14 was inflated using a 30 JONI INDEFLATOR at 16 joni for 20 sec. 14:56:25 HR=43 bpm, GDYW=720/51 mmhg, SpO2=95.0 %, Resp=12 B/min, San=2 14:57:00 ACT (Normal Range 90-180) = 284 A BALLOON, 2.0 X 15MM NC EUPHORA 12MM over a WIRE, BALANCE MIDDLEWEIGHT 190CM 190CM in the LAD Mid 14:57:37 was inflated using a 30 JONI INDEFLATOR at 16 joni for 15 sec. 14:59:23 Balloon Removed. 1000 units HEPARIN given in lab by Nelsy Ennis RN in Right Antecubital via Peripheral IV. Ordered by Manuel 15:00:00 Felice. A BALLOON, 2.0 X 12MM NC EUPHORA 12MM was inserted over WIRE, BALANCE MIDDLEWEIGHT 190CM 190CM via 15:00:36 the LAD Mid. 15:00:39 HR=53 bpm, DLVI=798/79 mmhg, SpO2=94.0 %, Resp=16 B/min, San=2 A BALLOON, 2.0 X 12MM NC EUPHORA 12MM over a WIRE, BALANCE MIDDLEWEIGHT 190CM 190CM in the LAD Mid 15:01:21 was inflated using a 30 JONI INDEFLATOR at 18 joni for 15 sec. A BALLOON, 2.0 X 12MM NC EUPHORA 12MM over a WIRE, BALANCE MIDDLEWEIGHT 190CM 190CM in the LAD Mid 15:01:51 was inflated using a 30 JONI INDEFLATOR at 20 joni for 15 sec. A BALLOON, 2.0 X 12MM NC EUPHORA 12MM over a WIRE, BALANCE MIDDLEWEIGHT 190CM 190CM in the LAD Mid 15:03:01 was inflated using a 30 JONI INDEFLATOR at 20 joni for 15 sec. 15:04:58 200 mcg NTG (IC) given in lab by Felice Jackson in Right Radial via Intra-coronary. Orde red by Felice Jackson. 15:05:42 HR=58 bpm, EMES=538/64 mmhg, SpO2=96.0 %, Resp=17 B/min, San=2 A BALLOON, 2.0 X 12MM NC EUPHORA 12MM over a WIRE, BALANCE MIDDLEWEIGHT 190CM 190CM in the LAD Mid 15:06:13 was inflated using a 30 JONI INDEFLATOR at 12 joni for 10 sec. 15:07:16 Balloon Removed. 15:10:41 HR=57 bpm, AEQA=302/64 mmhg, SpO2=94.0 %, Resp=14 B/min, San=2 1000 units HEPARIN given in lab by Nelsy Ennis, PHILLIP in Right Antecubital via Peripheral IV . Ordered by Manuel 15:11:04 Felice. 15:14:04 Wires removed ([employer] and [employer]) 15:15:29 Catheter was removed 15:15:40 HR=57 bpm, GYKQ=900/67 mmhg, SpO2=95 %, Resp=18 B/min, San=2 15:16:04 Case End Radial Compression Device Used. 6 mLs of air placed in BAND, RADIAL COMPRESSION TR SHORT 24 24 CM. Affected 15:16:13 hand ~O2 SATURATION~ % O2 saturation. 15:16:37 No case complications noted. 15:17:37 Cine recording checked. 15:19:00 180 mg BRILINTA given in lab by Nelsy Ennis, PHILLIP via Oral. Ordered by Sam Jackson 15:19:13 Bedside Report will be given. 15:19:14 Implantable Device card placed in patient's chart. 15:19:17 Contrast Scanned 15:20:41 HR=57 bpm, ULQG=600/59 mmhg, SpO2=95.0 %, Resp=15 B/min, San=2 15:23:12 A Left Heart Cath was performed. Assessment: Final Case, HR=57 BPM, Rhythm=sr, GJOT=327/68 mmhg, Chest Pain=0, Edema=None, [place] r=Normal, Skin = Warm, Dry 15:23:23 Right Pulses: Georges Ped=2, Femoral=2, Radial=2 Neurological: State=Alert, Ox3, CRUZ Respiration: Resp=13 B/min, RlM1=470 % 15:27:00 Patient moved to bed. End Study - Contrast Media Used In Study Contrast Total Opened (mL) Total Used (mL) Total Wasted (mL) Omnipaque 270 270 0 End Study - Maximum Contrast Load Max Contrast Load (mL) 415.0 End Study - Radiation Exposure Fluoro Time (minutes) 33.4 End Study - Patient Disposition Complications Transferred To Interventional Outcome No Telemetry Bed successful
== END 2017-04-14 12:46 | disposition home or self-care (01) ==
LOC: NEPE 15:29 → NEDA 18:03 → NEPGCP 19:17 → HCIS 04-13 12:36
PROVIDERS: ADMIT Internal Medicine; ATTEND Internal Medicine
DX: I25.110 Atherosclerotic heart disease of native coronary artery with unstable angina pectoris (principal); I10 Essential (primary) hypertension; E78.5 Hyperlipidemia, unspecified; M72.0 Palmar fascial fibromatosis [Dupuytren]; R94.39 Abnormal result of other cardiovascular function study; R94.31 Abnormal electrocardiogram [ECG] [EKG]
CPT/HCPCS: 71020; 78452; 80048; 82550; 83735; 84484; 85002; 85025; 85610; 85730; 92928; 93005; 93017; 93454; 99285; A9502; C1725; C1769; C1874; C1887; C1893; G0378; J1644; J2250; J2785; J3010; J7030; J7040; Q9967